=== PATIENT | male | born 2000 | race Two or more races ===

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

== ENCOUNTER 2021-05-04 07:40 | Emergency (ER) | payer OTHER, SELFPAY ==
--- NOTE | ~2021-05-04 | XR_ITS ---
EXAMINATION: XR CHEST CLINICAL INFORMATION: Shortness of breath COMPARISON: None TECHNIQUE: Frontal view of the chest was obtained. FINDINGS: There is no evidence of acute parenchymal disease, pneumothorax, or pleural effusion. Heart normal size. No evidence of pulmonary edema. Minor scarring at the left base XR/XR chest 1V IMPRESSION: No acute parenchymal disease.
[2021-05-04 07:43] VITALS: BP 129/48; PULSE 80; RESP 20; TEMP 36.6; O2SAT 96; BMI 24.4
[2021-05-04] MEDS: Albuterol/Iprat 2.5/0.5MG 3 ML AMPUL.NEB INHALE (08:50)
[2021-05-04 08:51] VITALS: PULSE 80; O2SAT 99
--- NOTE | 2021-05-04 08:54 | ED.SOB ---
HPI - SOB/Dyspnea General Chief Complaint: Dyspnea Stated Complaint: diff breathing Time Seen by Provider: 05/04/21 08:31 Source: patient Mode of arrival: ambulatory History of Present Illness HPI Narrative: 21-year-old male with a past medical history of asthma presenting to the ED complaining worsening SOB x a couple days and dry cough. Admits has needed to use albuterol inhaler more frequently without relief. Denies fever, chills, chest pain, LE edema, calf pain, sick contacts. Recently traveled to [place] MD elicited complaint: shortness of breath and cough Related Data Previous Rx's Medication Instructions Recorded albuterol sulfate 2.5 mg/0.5 mL 5 mg INHALATION Q4H PRN #30 ea 05/04/21 solution for nebulization Allergies Allergy/AdvReac Type Severity Reaction Status Date / Time amoxicillin [AMOXICILLIN] Allergy Unknown HIVES Unverified 02/19/20 17:01 Review of Systems Review of Systems: Constitutional: No Fever, No Chills, No Fatigue, No Malaise ENT/Mouth: No Ear Pain, No Nasal Congestion, No sore throat, No Rhinorrhea Eyes: No Eye Pain, No Swelling Cardiovascular: No Chest Pain, + SOB, No Dyspnea on Exertion, No Orthopnea, No Edema, No Palpitations Respiratory: + Cough, No Sputum, + Wheezing, No Dyspnea Gastrointestinal: No Nausea, No Vomiting, No Diarrhea, No Constipation, No Abdominal pain Genitourinary: No Dysuria, No Hematuria,No Flank Pain Musculoskeletal: No joint pain, No Myalgias, No Joint Swelling Skin: No Skin Lesions, No rash Neuro: No Weakness, No Numbness, No Dizziness, No Headache Yes all other systems are reviewed and are negative [facility] Past Medical History Attestation statement: The following information was validated with the patient. Medical History (Updated 05/04/21 @ 10:07 by LINA Mackay) Asthma Social History Social History Advance Directives: No Advance Directives Information Provided: Yes Physical Exam Vital Signs: Vital Signs: Last Vital Signs Temp 98 F 05/04/21 07:43 Pulse 80 05/04/21 08:51 Resp 20 05/04/21 07:43 BP 129/48 L 05/04/21 07:43 Pulse Ox 96 05/04/21 07:43 Body Mass Index 24.4 Const: General: cooperative, healthy appearing and no acute distress Orientation/consciousness: patient oriented x3 Limitations: no limitations HENMT: Head: Yes normal to inspection Ears: hearing grossly normal bilaterally General nose exam: Normal external nose present Face and sinus: Yes normal facial exam Eyes: General: appearance normal, both eyes and all related structures EOM: EOMs intact bilaterally Neck: Neck: Yes normal visual inspection and Yes no meningeal signs Resp: Other: Good air movement Effort & Inspection: normal respiratory effort Auscultation: wheezes (Mild) expiratory wheezes and throughout Cardio: Rate: regular rate Heart sounds: S1 normal heart sound present and S2 normal heart sound present GI: Inspection: Yes normal to inspection Palpation (GI): Soft to palpation, nontender, no guarding and not rigid Skin: Rashes: no rashes Wounds: no wounds Neuro: General: patient oriented x3 and no meningeal signs Gait exam (Neuro): Normal gait present Extrem: General: Yes normal to inspection, Yes no pedal edema and Yes no calf tenderness Course Course Course Narrative: XR chest 1V IMPRESSION: No acute parenchymal disease. ? > results discussed with patient, will discharge prior to COVID-19 results, will call with lab results only discussed worrisome signs and symptoms and strict return precautions and need to follow-up with PCP, patient verbalized understanding feel safe for discharge home MDM - SOB/Dyspnea MDM Narrative Medical decision making narrative: 21-year-old male with a past medical history of asthma presenting to the ED complaining worsening SOB x a couple days and dry cough. On exam vital signs stable, NAD/nontoxic, lungs with expiratory wheezes, good air movement, no pedal edema/calf tenderness. Concern for asthma exacerbation vs viral syndrome/COVID-19. Rule out pneumonia. Low concern for ACS/PE Plan: CXR, COVID-19 testing, [facility] Medical Records Attestation: I reviewed the patient's medical records. Lab Data Attestation: I reviewed the patient's lab results. Discharge Plan Discharge Clinical Impression: Asthma with exacerbation Qualifiers: Asthma severity: mild Asthma persistence: unspecified Qualified Code(s): J45.901 - Unspecified asthma with (acute) exacerbation Patient Disposition: Home, Self-Care Instructions: Asthma (ED) Additional Instructions: Your chest x-ray was unremarkable Your COVID-19, flu, and RSV test is pending at this time, I will call you with positive results only, you can also check the results of your study on the portal If her symptoms persist or worsen coming of constant worsening shortness of breath, develops fever, productive cough please return to the emergency department You need to be using her inhalers consistently at home in your nebulizer machine, refills for the neb machine were sent to the pharmacy Prescriptions: New albuterol sulfate 2.5 mg/0.5 mL solution for nebulization 5 mg inhalation Q4H PRN (Reason: shortness of breath or wheezing) Qty: 30 RF: 0 Referrals: Physician,Unknown J [Primary Care Provider] - 2 days
[2021-05-04] MEDS: Albuterol Sulfate 90 MCG 8 GM INHALER 1 PUFF INHALE (09:04)
[2021-05-04 11:04] LABS: Influenza A PCR NEGATIVE (Negative); Influenza B PCR NEGATIVE (Negative); Resp Syncy Virus RNA Qual PCR NEGATIVE (Negative); SARS COV2 PCR INHOUSE POSITIVE (Negative)
== END 2021-05-04 10:23 | disposition home or self-care (01) ==
PROVIDERS: Physician Assistant; Emergency Provider Emergency Medicine
DX: J45.901 Unspecified asthma with (acute) exacerbation (principal); R06.02 Shortness of breath; R50.9 Fever, unspecified; Z20.822 Contact with and (suspected) exposure to COVID-19; Z79.899 Other long term (current) drug therapy
CPT/HCPCS: 0241U; 36415; 71045; 94640; 94664; 99283; 99284

== ENCOUNTER 2022-11-22 09:44 | Emergency (ER) | payer OTHER, SELFPAY ==
--- NOTE | ~2022-11-22 | XR_ITS ---
EXAMINATION: XR ANKLE, LEFT CLINICAL INFORMATION: Ankle pain COMPARISON: None available. TECHNIQUE: AP, lateral, and mortise views of the left ankle. FINDINGS: The bones and soft tissues are normal. No fracture. Alignment is anatomic. Joint spaces are maintained. No joint effusion. XR/XR ankle LT min 3V IMPRESSION: Normal left ankle.
--- NOTE | ~2022-11-22 | XR_ITS ---
EXAMINATION: XR FOOT, LEFT CLINICAL INFORMATION: Left foot and ankle pain COMPARISON: None available. TECHNIQUE: AP, lateral, and oblique views of the left foot. FINDINGS: The bones and soft tissues are normal. No fracture. Alignment is anatomic. Joint spaces are maintained. XR/XR foot LT min 3V IMPRESSION: Normal left foot.
[2022-11-22 09:47] VITALS: BP 133/72; PULSE 63; RESP 18; TEMP 36.4; O2SAT 100; BMI 26.2
--- NOTE | 2022-11-22 10:06 | PC.NURSE ---
pt presents with pain in the left ankle that radiates towards the achilles tendon d/t twisting his ankle while playing basketball, no swelling noted, CMS intact, pedal/posterior tibial pulses intact.
--- NOTE | 2022-11-22 10:35 | ED.LOWEXIN ---
HPI - Extremity Injury (Lower) General Chief Complaint: Extremity Injury, Lower Stated Complaint: L Ankle Injury 3 Wks Ago Time Seen by Provider: 11/22/22 09:58 Source: patient and RN notes reviewed Mode of arrival: ambulatory Limitations: no limitations History of Present Illness HPI Narrative: This is a 22-year-old male presenting to the emergency department for evaluation of left ankle and left foot pain x3 weeks. Patient reports that while he was playing basketball he inverted his left ankle. He did not hear a pop or crack during this incident. He was able to bear weight on his left ankle and foot immediately following this injury. He reports that since his injury he has had intermittent swelling to his left ankle and has pain when he jumps up and down. He denies any pain with weight-bearing or with walking. He has tried taking ibuprofen as well as resting his ankle without any relief. No other complaints or concerns at this time. MD complaint: ankle injury and foot injury Type of Injury: inversion Place: street/outdoors Relieving factors: NSAID, cold therapy, immobilization and rest Exacerbating factors: other (Jumping) Associated symptoms: swelling Other symptoms: none Related Data Previous Rx's Medication Instructions Recorded albuterol sulfate 2.5 mg/0.5 mL 5 mg inhalation Q4H PRN shortness 05/04/21 solution for nebulization of breath or wheezing #30 ea ibuprofen 600 mg tablet 600 mg PO Q6H PRN pain #30 tabs 11/22/22 Allergies Allergy/AdvReac Type Severity Reaction Status Date / Time amoxicillin [AMOXICILLIN] Allergy Unknown HIVES Unverified 02/19/20 17:01 Review of Systems Review of Systems: Constitutional: No Weight loss, No Fever, No Chills ENT/Mouth: No Ear Pain, No Nasal Congestion, No Sinus Pain, No Hoarseness, No sore throat, No Rhinorrhea, No Swallowing Difficulty Cardiovascular: No Chest Pain, No SOB Respiratory: No Cough, No Sputum, No Wheezing Gastrointestinal: No Nausea, No Vomiting, No Diarrhea, No Constipation, No Abdominal pain Genitourinary: No Dysuria, No Urinary Frequency, No Hematuria, No Urinary Incontinence/retention, No Urgency, No Flank Pain Musculoskeletal: No joint pain, No Myalgias, No Joint Swelling Skin: No Skin Lesions, No rash Neuro: No Weakness, No Numbness, No Paresthesias [facility] Past Medical History Medical History Asthma Social History Social History Advance Directives: No Advance Directives Information Provided: Yes Physical Exam Vital Signs: Vital Signs: Last Vital Signs Temp 97.5 F 11/22/22 09:47 Pulse 63 11/22/22 09:47 Resp 18 11/22/22 09:47 BP 133/72 11/22/22 09:47 Pulse Ox 100 11/22/22 09:47 O2 Del Method Room Air 11/22/22 09:47 BMI result Body Mass Index 26.2 Const: Other: General: Awake, alert, and oriented X3. No acute distress. HEENT: Normal inspection CVS: Normal heart rate and rhythm. Pulses normal. Respiratory: No respiratory distress Skin: Warm, dry, no rashes noted to exposed skin. Normal skin color. Normal skin turgor. Extremities: Left ankle with mild edema noted over the lateral malleolus. Mild tenderness palpation over the left lateral malleolus and just inferior to the left lateral malleolus. No left medial malleoli tenderness. Able to dorsi and plantar flex, no pain with inversion or eversion. Patient has mild tenderness to palpation to the 1st metatarsal. No tenderness to palpation along the metatarsal. DP pulses 2+, distal sensation/circulation. Mild tenderness to palpation along the Achilles tendon without any swelling or appreciable abnormalities. Negative díaz test. No calcaneal tenderness with palpation. Neuro: Oriented X 3. No motor deficit. No sensory deficit. Course Reevaluation(s) Reevaluation #1: Left foot and left ankle x-rays reviewed with no bony abnormality seen. These results discussed with patient, placed Dada wrap on left ankle. Given orthopedic referral if symptoms persist. Patient understands agrees with plan. Patient stable for discharge. Time: 12:18 Medical Decision Making Medical Decision Making MDM Narrative: 21-year-old male presenting to the emergency department for evaluation of left ankle pain and left foot pain the last 3 weeks. Patient reports that he inverted his left ankle and foot while playing basketball. He was able to bear weight after the incident. Patient has had pain with jumping. No pain ambulation. Vital signs stable. Negative Díaz test, Achilles tendon is intact. Plan: Left ankle x-ray, left foot x-ray Differential Diagnosis Differential Diagnoses: The differential diagnosis associated with the presentation includes Left ankle fracture, strain, sprain, contusion, Achilles tendon rupture Discharge Plan Discharge Clinical Impression: Ankle sprain and strain Patient Disposition: Home, Self-Care Instructions: Ankle Sprain (ED) Additional Instructions: Your foot and ankle x-ray showed no broken bones. Please rest, use Dada wrap or ankle brace for support. Avoid jumping until your able to tolerate this. If your symptoms persist please follow-up with orthopedics for further treatment and assessment. Take ibuprofen as prescribed as needed for symptoms. If any new or worsening symptoms occur please return for re-evaluation. Prescriptions: New ibuprofen 600 mg tablet 600 mg PO Q6H PRN (Reason: pain) Qty: 30 0RF No Action albuterol sulfate 2.5 mg/0.5 mL solution for nebulization 5 mg inhalation Q4H PRN (Reason: shortness of breath or wheezing) Qty: 30 0RF Referrals: [facility] [place] Orth[facility] Surgeons [Provider Group]
== END 2022-11-22 12:48 | disposition home or self-care (01) ==
PROVIDERS: Emergency Provider Emergency Medicine; PCP Internal Medicine
DX: S93.402A Sprain of unspecified ligament of left ankle, initial encounter (principal); S96.912A Strain of unspecified muscle and tendon at ankle and foot level, left foot, initial encounter; X50.1XXA Overexertion from prolonged static or awkward postures, initial encounter; Y93.67 Activity, basketball; Y92.310 Basketball court as the place of occurrence of the external cause; Y99.9 Unspecified external cause status
CPT/HCPCS: 73610; 73630; 99283

== ENCOUNTER 2024-01-26 20:34 | Emergency (ER) | payer OTHER, SELFPAY ==
--- NOTE | ~2024-01-26 | XR_ITS ---
EXAMINATION: XR KNEE, RIGHT CLINICAL INFORMATION: Injury. Pain in the knee. COMPARISON: None available. TECHNIQUE: AP, lateral, and both oblique views of the right knee. FINDINGS: There is focal impaction of the lateral femoral condyle and the region of the terminal sulcus, concerning for a deep sulcus sign. Small joint effusion. Alignment is anatomic. Joint spaces are maintained. No abnormal soft tissue calcification. XR/XR knee RT 3V IMPRESSION: 1. Focal impaction of the lateral femoral condyle in the region of the terminal sulcus, concerning for a deep sulcus sign. This can be seen in the setting of a pivot shift injury as with an ACL tear. Consider correlation with MRI of the knee for further assessment. 2. Small joint effusion. Electronically signed by: Lowell Quinones MD 01/26/2024 10:25 PM EDT
--- NOTE | 2024-01-26 20:37 | ED_ITS ---
HPI - General Adult General Chief complaint: Extremity Injury, Lower Stated complaint: playing basketball/rt leg Time Seen by Provider: 01/26/24 20:48 Source: patient Mode of arrival: ambulatory Limitations: no limitations History of Present Illness ED Provider: Erin Zamora PA-C HPI narrative: Patient is a 24 year old assigned male at with no reported medical history presenting to the emergency department today with right knee pain. Patient states that he was playing basketball when he jumped and landed incorrectly and fell while his right lower leg was planted. Patient states that he felt pain in his right knee immediately and it has continued to get worse. Patient denies any head injury, loss of consciousness, dizziness, lightheadedness, abdominal pain, nausea, vomiting, fever, chills, blurry vision, double vision, loss of vision, chest pain, difficulty breathing, shortness of breath, back pain, night sweats, pain with urination, increased urinary frequency, increased urinary urgency, blood in his urine or stool, syncope or a near syncopal episode, bowel incontinence, bladder incontinence, or any other complaints at this time. Onset (ago): minute(s) Location: right and lower extremity Relieving factors: immobilization Exacerbating factors: movement Associated symptoms: denies other symptoms Treatments prior to arrival: none Related Data Previous Rx's ?Medication ?Instructions ?Recorded albuterol sulfate 2.5 mg/0.5 mL 5 mg inhalation Q4H PRN shortness 05/04/21 solution for nebulization of breath or wheezing #30 ea ibuprofen 600 mg tablet 600 mg PO Q6H PRN pain #30 tabs 11/22/22 Allergies Allergy/AdvReac Type Severity Reaction Status Date / Time amoxicillin [AMOXICILLIN] Allergy Unknown HIVES Unverified 01/26/24 20:40 Review of Systems Constitutional: Constitutional: Reports no additional constitutional co mplaints, Denies chills, Denies fever(s) and Denies night sweats Eyes: Eyes: Reports no additional eye complaints, Denies blurry vision, Denies change in vision, Denies diplopia, Denies eye discharge, Denies loss of vision and Denies eye pain ENT: Denies dizziness Cardiovascular: Cardiovascular: Reports no additional cardiovascular complaints, Denies chest pain, Denies lightheadedness, Denies Loss of Consciousness and Denies dyspnea Respiratory: Respiratory: Reports no additional respiratory complaints and Denies dyspnea Gastrointestinal: Gastrointestinal: Reports no additional gastrointestinal complaints, Denies abdominal pain, Denies melena, Denies hematochezia, Denies change in bowel habits and Denies change in stool character Genitourinary: Genitourinary: Reports no additional male genitourinary complaints, Denies hematuria, Denies oliguria, Denies difficulty urinating, Denies dysuria, Denies urinary frequency, Denies urinary hesitancy, Denies urinary incontinence and Denies urinary urgency Musculoskeletal: Musculoskeletal: Reports no additional musculoskeletal complaints, Denies numbness and Denies tingling Comments: right knee pain Neurologic: Denies dizziness, Denies loss of vision, Denies numbness and Denies tingling Psychiatric: Psychiatric: Reports no additional psychiatric complaints Endocrine: Endocrine: Reports no additional endocrine complaints Hematologic/Lymphatic: Hematologic/Lymphatic: Reports no additional hematologic/lymphatic complaints Allergic/Immunologic: Allergic/Immunologic: Reports no additional allergic/immunologic complaints PMFSH Past Medical History Attestation statement: The following information was validated with the patient. Source: old records reviewed and nursing notes reviewed Medical History Asthma Social History Social History Alcohol intake: unknown Smoked in Last 30 Days: No Advance Directives: No Advance Directives Information Provided: No Do you have a plan to hurt others: No Plan Physical Exam ED Vital Signs: Vital Signs - 24 hr 01/26/24 20:38 01/26/24 22:33 Temperature 98.9 F 98.9 F Pulse Rate 85 85 Respiratory Rate 18 18 Blood Pressure 122/61 122/61 Pulse Oximetry 97 97 Oxygen Delivery Method Room Air Room Air BMI result Body Mass Index 27.7 Const General: cooperative, no acute distress, alert and awake Nutritional Appearance: well nourished Orientation/consciousness: patient oriented x3 Limitations: no limitations HENMT Head: Yes normal to inspection and Yes atraumatic Ears: hearing grossly normal bilaterally and external ears normal General nose exam: Normal external nose present, no nasal discharge noted and no epistaxis Face and sinus: Yes normal facial exam, No abrasion and No laceration Mouth: Normal oral and palatal mucosa present, no drooling and no muffled voice Eyes General: appearance normal, both eyes and all related structures Periorbital: periorbital findings normal Eyelids: Yes eyelids normal Conjunctivae: conjunctivae normal Pupils: Equal, round and reactive pupils present EOM: EOMs intact bilaterally Neck Neck: Yes normal visual inspection, Yes full ROM and Yes no lymphadenopathy Chest Chest palpation & inspection: normal inspection of the chest Resp Effort & Inspection: normal respiratory effort and able to speak in complete sentences GI Inspection: Yes normal to inspection Neuro General: patient oriented x3 and moves all extremities Cranial nerves: Yes Equal, round and reactive pupils present Cognition (Neuro): normal cognition Extrem Other: pain with all right knee ROM Significant pain with anterior drawer test General: Yes normal to inspection and Yes capillary refill normal Psych Appearance: grossly normal Mental Status: mental status grossly normal Affect: normal affect Attitude: cooperative Thought process: Normal thought process present Thought content: Normal thought content present Insight: Good insight present (Psych) Course Course Course Narrative: This is a rapid medical exam. Deferred additional HPI, ROS, PE to primary provider. 24 yo male with history of asthma here with right knee pain after a twisting injury with a fall. +instability. Will obtain x-rays [facility] Neha [employer] Procedures Orthopedic Splinting/Casting Injury #1: Side: right Lower Extremity Injury Location: knee Lower Extremity Immobilizer: knee immobilizer Other Orthopedic Equipment: crutches Medical Decision Making Medical Decision Making MDM Narrative: Patient is a 24 year old assigned male at with no reported medical history presenting to the emergency department today with right knee pain. Patient's physical exam was as noted in the physical exam portion of this note and most consistent with an ACL injury. Patient's right knee x-ray showed a focal impaction of the lateral femoral condyle in the region of the terminal sulcus which is consistent with an ACL injury. I explained my physical exam findings as well as all test results to the patient. I answered all questions asked by the patient. Patient's right knee was placed in an immobilizer, without incident. Patient's PMS was intact prior to and after immobilizer placement. Patient was given crutches with crutch instructions. I stressed the importance of the patient taking his medication as directed (either prescribed or as the over the counter packaging recommends). I stressed the importance of the patient following up with his primary care provider and an orthopedic provider. I stressed the importance of the patient returning to the emergency department immediately if his symptoms were to worsen or if he were to develop any dizziness, shortness of breath, difficulty breathing, chest pain, blurry vision, loss of vision, nausea, vomiting, abdominal pain, fever, chills, back pain, or any other complaints. Patient verbalized agreement and understanding with this treatment plan and discharge. Differential Diagnosis Differential Diagnoses: The differential diagnosis associated with the p resentation includes Right ACL injury Right knee sprain Right knee strain Right knee pain Admission/Observation Consideration of admission/observation: Escalation of care including admission/observation considered Patient would have been admitted to the hospital had his work up had any findings where hospital admission was appropriate and his clinical presentation warranted hospital admission. Independent Interpretation I performed an independent interpretation of an: Plain X-Ray Interpretation: My interpretation is in agreement with the radiologist's impression of this imaging study. EXAMINATION: XR KNEE, RIGHT CLINICAL INFORMATION: Injury. Pain in the knee. COMPARISON: None available. TECHNIQUE: AP, lateral, and both oblique views of the right knee. FINDINGS: There is focal impaction of the lateral femoral condyle and the region of the terminal sulcus, concerning for a deep sulcus sign. Small joint effusion. Alignment is anatomic. Joint spaces are maintained. No abnormal soft tissue calcification. XR/XR knee RT 3V IMPRESSION: 1. Focal impaction of the lateral femoral condyle in the region of the terminal sulcus, concerning for a deep sulcus sign. This can be seen in the setting of a pivot shift injury as with an ACL tear. Consider correlation with MRI of the knee for further assessment. 2. Small joint effusion. Electronically signed by: Lowell Quinones MD 01/26/2024 10:25 PM EDT RP Dictated By: Lowell Quinones MD Signed By: Electronically signed by Lowell Quinones MD 01/26/24 3318 Radiology Impression Discussion of test interpretation with radiology: I have reviewed the radiologist's reading. Discharge Plan Discharge Clinical Impression: Knee sprain Patient Disposition: Home, Self-Care Instructions: Knee Sprain (DC) Additional Instructions: Follow up with your primary care provider and an orthopedic provider. Return to the emergency department immediately if your symptoms worsen or if you develop any dizziness, shortness of breath, difficulty breathing, chest pain, blurry vision, loss of vision, nausea, vomiting, abdominal pain, fever, chills, back pain, or any other complaints. Prescriptions: No Action albuterol sulfate 2.5 mg/0.5 mL solution for nebulization 5 mg inhalation Q4H PRN (Reason: shortness of breath or wheezing) Qty: 30 0RF ibuprofen 600 mg tablet 600 mg PO Q6H PRN (Reason: pain) Qty: 30 0RF Referrals: [facility] [place] Orthopedic Surgeons [Provider Group] (Call to establish and follow up with an orthopedic provider. ) Alex Dunn MD [Primary Care Provider] - Stand Alone Forms: Work/School Release Interventions: ED Discharge Assessment Last Done: 01/26/24 22:33 Discharge Date/Time: 01/26/24 22:34 Print Language: Yakut
[2024-01-26 20:38] VITALS: BP 122/61; PULSE 85; RESP 18; TEMP 37.2; O2SAT 97; BMI 27.7
[2024-01-26 22:33] VITALS: BP 122/61; PULSE 85; RESP 18; TEMP 37.2; O2SAT 97
== END 2024-01-26 22:34 | disposition home or self-care (01) ==
PROVIDERS: Emergency Provider Emergency Medicine Emergency Medical Services; PCP Internal Medicine
DX: S83.91XA Sprain of unspecified site of right knee, initial encounter (principal); X50.9XXA Other and unspecified overexertion or strenuous movements or postures, initial encounter; Y93.67 Activity, basketball; Y92.310 Basketball court as the place of occurrence of the external cause; Y99.9 Unspecified external cause status
CPT/HCPCS: 73562; 99283; 99284

== ENCOUNTER 2024-01-29 12:41 | Outpatient (REF) | payer OTHER, SELFPAY ==
--- NOTE | ~2024-01-29 | XR_ITS ---
EXAMINATION: XR KNEE, RIGHT CLINICAL INFORMATION: Pain in the right knee COMPARISON: X-rays of the right knee January 2024. TECHNIQUE: Single patellar view of the right knee FINDINGS: The patellofemoral joint is normal. No joint space narrowing with degenerative changes surrounding soft tissue is normal. XR/XR knee RT 1V IMPRESSION: Normal patellar view. No arthrosis Electronically signed by: Colin Berrios MD 02/19/2024 06:59 AM EDT
== END 2024-01-29 12:42 | disposition home or self-care (01) ==
LOC: HO.XRAY 12:41
PROVIDERS: PCP Internal Medicine; Visit Provider Physician Assistant
DX: M25.561 Pain in right knee (principal); M23.91 Unspecified internal derangement of right knee
CPT/HCPCS: 73560; 99202

== ENCOUNTER 2024-01-29 13:12 | Outpatient (AMB) | payer OTHER, SELFPAY ==
--- NOTE | 2024-01-29 13:24 | MHC.OFFVIS ---
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 Patient reports he went up for a lay and upon coming down he landed wrong twisting his knee. He presented to [facility] ER where xrays were taken and placed in a knee immobilizer. Currently he has had improvement in his pain since injury as well as his ROM. He is nervous to apply any pressure. 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 He states he was playing basketball when he went up for a lay-up and came down landing on the knee and twisting the leg back and he fell. He was unable to immediately get up and walk . He did notice swelling a few days after. He was seen in the ED, xryas obtained and he was given a knee immob with crutches. He has not been applying weight to the leg as he feels it will give out. [facility] Medical History (Updated 01/29/24 @ 13:47 by Thania Ocampo PA-C) Asthma Surgical History (Updated 01/29/24 @ 13:28 by JARVIS Beauchamp) History of nasal surgery Social History (Updated 01/29/24 @ 13:29 by JARVIS Beauchamp) Alcohol intake: unknown Patient Tobacco Use Status: Never used Tobacco Current occupational status: employed Current occupation: youth counselor Review of Systems Const All systems reviewed & are unremarkable except as noted in HPI and below Physical Exam Vital Signs: BMI result Body Mass Index 27.7 Const General: cooperative and no acute distress Orientation/consciousness: patient oriented x3 Resp Effort & Inspection: normal respiratory effort and able to speak in complete sentences Cardio Peripheral pulses: Peripheral pulses 2+ throughout Neuro General: patient oriented x3 Extrem Other: Right knee skin intact, no erythema or joint effusion. Mild Tenderness along the medial joint line. ROM full with crepitus. Positive steinmans. No ligamentous laxity. NVI. Results Reviewed Results Reviewed: Xrays were obtained in the office today and personally reviewed by me of the right knee negative for acute fracture or dislocations Assessment & Plan Assessment & Plan (1) Internal derangement of right knee: Code(s): M23.91 - Unspecified internal derangement of right knee Category: Medical Plan: Given the extent of the injury along with clinical exam findings of swelling, joint tenderness and feeling of the knee giving out when ambulating an MRI of the right knee has been ordered. He was given a hinged knee brace in the office today and I did review some exercises with him to work on his range of motion and activity in the quad muscle. Once the scan is complete I will reach out to him to determine the next step in his treatment. Orders: Orders XR knee RT 1V Today M25.561 - Pain in right knee MR knee RT wo con Today M23.91 - Unspecified internal derangement of right knee Coding Level of Care Code New Pt Level 3 (81635) Diagnoses Internal derangement of right knee M23.91
[2024-01-29 13:31] VITALS: BMI 27.7
== END 2024-01-29 14:24 | disposition home or self-care (01) ==
LOC: HO.HOS 13:12
PROVIDERS: PCP Internal Medicine; Visit Provider Physician Assistant
DX: M23.91 Unspecified internal derangement of right knee (principal)
CPT/HCPCS: 99203

== ENCOUNTER 2024-02-12 19:39 | Outpatient (REF) | payer OTHER, SELFPAY ==
--- NOTE | ~2024-02-12 | MR_ITS ---
EXAMINATION: MR KNEE WITHOUT CONTRAST, RIGHT CLINICAL INFORMATION: Internal derangement of the right knee. COMPARISON: X-ray of the right knee January 2024. TECHNIQUE: MRI of the knee without contrast was performed using routine sequences on a high-field scanner. FINDINGS: MENISCI: Medial Meniscus: There is a focal area of increased signal measuring 2 mm at the junction of the middle and peripheral one-third portion of the posterior horn indicative of meniscal tear. Lateral Meniscus: Intact. LIGAMENTS: Cruciate: ACL: There is a tear of the anterior cruciate ligament most likely complete and acute or subacute. PCL: Intact. Collateral: Medial collateral ligament: There is a transverse tear to the deep fibers of the medial collateral ligament located 1 cm proximal to the femoral attachment. Additional heterogeneity of the deep fibers extend to the joint line indicative of additional partial tearing. Lateral ligaments intact. EXTENSOR MECHANISM: Intact. ARTICULAR CARTILAGE/BONE: Patellofemoral Compartment: Normal. Medial Compartment: The subchondral bone marrow edema along the peripheral posterior margin of the medial plateau and peripheral medial margin of the weightbearing medial femoral condyle indicative of areas of bone contusion. Overlying articular cartilage intact. Lateral Compartment: Slight depression of the sulcus terminalis with underlying prominent surrounding marrow edema. Findings indicative of an impaction fracture. No additional visible area of articular abnormality. Bone marrow edema in the subchondral region of the posterior lateral plateau compatible with bone contusion. Overlying articular cartilage appears intact. JOINT FLUID AND BURSAE: There is a moderate to joint effusion. Small Khanna cyst. MR/MR knee RT wo con IMPRESSION: 1. Tear of the posterior horn of the medial meniscus. 2. Tear of the anterior cruciate ligament most likely complete. Bone contusion/injury pattern consistent with acute ACL tear. 3. Partial tear of the medial collateral ligament. 4. Joint effusion and Khanna's cyst. Electronically signed by: Colin Berrios MD 02/14/2024 12:18 PM EDT
== END 2024-02-12 19:40 | disposition home or self-care (01) ==
LOC: HO.MRI 19:39
PROVIDERS: PCP Internal Medicine; Visit Provider Physician Assistant
DX: M23.91 Unspecified internal derangement of right knee (principal)
CPT/HCPCS: 73721

== ENCOUNTER 2024-02-16 08:24 | Emergency (ER) | payer OTHER, SELFPAY ==
[2024-02-16 08:29] VITALS: BP 99/63; PULSE 79; RESP 18; TEMP 36.4; O2SAT 99; BMI 27.2
[2024-02-16 08:44] LABS: MANUAL DIFF FLAG NO
[2024-02-16 08:46] LABS: Basophils Percent Auto 0.2 % (0-2); Eosinophils Absolute Auto 0.2 X10*3/uL (0.0-0.4); Eosinophils Percent Auto 2.1 % (0-4); Hematocrit 40.4 % (42.0-52.0); Hemoglobin 14.4 g/dl (14.0-18.0); Imm Gran Abs Auto 0.03 X10*3/uL (0.00-0.03); Imm Gran Pct Auto 0.3 % (0.0-0.4); Lymphocytes Absolute Auto 2.8 X10*3/uL (1.2-4.9); Lymphocytes Percent Auto 29.1 % (20-40); Mean Corpuscular HGB Conc 35.6 g/dl (31.0-36.0); Mean Corpuscular Hemoglobin 29.9 pg (27.0-33.0); Mean Corpuscular Volume 83.8 fL (80.0-98.0); Monocytes Absolute Auto 0.8 X10*3/uL (0.1-1.2); Monocytes Percent Auto 8.6 % (2-11); Neutrophils Absolute Auto 5.6 x10*3/uL (2.0-8.3); Neutrophils Percent Auto 59.7 % (45-73); Platelet Count 235 X10*3/uL (160-400); Red Blood Count 4.82 X10*6/uL (4.60-5.80); Red Cell Distribution Width 11.8 % (11.0-16.0); White Blood Count 9.4 X10*3/uL (4.8-10.8)
[2024-02-16 08:49] VITALS: BP 126/66; PULSE 66; RESP 16; TEMP 36.6; O2SAT 96
[2024-02-16 09:02] LABS: Alanine Aminotransferase 21 U/L (0-40); Albumin Level 4.4 g/dL (3.5-5.0); Alkaline Phosphatase 82 U/L (39-117); Anion Gap 14 (12-20); Aspartate Amino Transferase 16 U/L (5-37); Bilirubin Total 0.4 mg/dL (0.0-1.0); Blood Urea Nitrogen 23 mg/dL (9-16); Calcium 9.7 mg/dL (8.4-10.2); Carbon Dioxide 23 mmol/L (22-29); Chloride 107 mmol/L (96-108); Creatinine Clr Calc Pharmacy 145.8; Estimated Glomerular Filt Rate > 60; Glucose Random 113 mg/dL (60-115); Potassium 3.9 mmol/L (3.3-5.1); Sodium 140 mmol/L (135-145)
--- NOTE | 2024-02-16 09:02 | ED.GENADULT ---
HPI - General Adult General Chief complaint: GI Bleed Stated complaint: abd pain coffee ground stools Time Seen by Provider: 02/16/24 09:01 Source: patient Mode of arrival: ambulatory Limitations: no limitations History of Present Illness ED Provider: Erin Zamora PA-C HPI narrative: Patient is a 24 year old assigned male at with a history of recent right ACL injury presenting to the emergency department today with dark stools. Patient states that he recently injured his right ACL and has been taking ibuprofen 400mg BID for pain. Patient states that last night he had a bout of dark stools and then had another bout again this morning. Patient denies any dizziness, lightheadedness, abdominal pain, nausea, vomiting, fever, chills, blurry vision, double vision, loss of vision, chest pain, difficulty breathing, shortness of breath, back pain, night sweats, pain with urination, increased urinary frequency, increased urinary urgency, blood in his urine, syncope or a near syncopal episode, recent trauma or falls, bowel incontinence, bladder incontinence, or any other complaints at this time. Relieving factors: none Exacerbating factors: none Associated symptoms: denies other symptoms Related Data Previous Rx's ?Medication ?Instructions ?Recorded albuterol sulfate 2.5 mg/0.5 mL 5 mg inhalation Q4H PRN shortness 05/04/21 solution for nebulization of breath or wheezing #30 ea ibuprofen 600 mg tablet 600 mg PO Q6H PRN pain #30 tabs 11/22/22 pantoprazole 20 mg tablet,delayed 20 mg PO BID 14 days #28 tabs 02/16/24 release (Protonix) Allergies Allergy/AdvReac Type Severity Reaction Status Date / Time amoxicillin [AMOXICILLIN] Allergy Unknown HIVES Verified 02/16/24 08:32 Review of Systems Constitutional: Constitutional: Reports no additional constitutional complaints, Denies chills, Denies fever(s) and Denies night sweats Eyes: Eyes: Reports no additional eye complaints, Denies blurry vision, Denies change in vision, Denies diplopia, Denies eye discharge, Denies loss of vision and Denies eye pain ENT: Denies dizziness Cardiovascular: Cardiovascular: Reports no additional cardiovascular complaints, Denies chest pain, Denies lightheadedness, Denies Loss of Consciousness and Denies dyspnea Respiratory: Respiratory: Reports no additional respiratory complaints and Denies dyspnea Gastrointestinal: Gastrointestinal: Reports no additional gastrointestinal complaints, Denies abdominal pain, Reports melena, Denies hematochezia, Denies change in bowel habits and Reports change in stool character Genitourinary: Genitourinary: Reports no additional male genitourinary complaints, Denies hematuria, Denies oliguria, Denies difficulty urinating, Denies dysuria, Denies urinary frequency, Denies urinary hesitancy, Denies urinary incontinence and Denies urinary urgency Musculoskeletal: Musculoskeletal: Reports no additional musculoskeletal complaints, Denies numbness and Denies tingling Neurologic: Denies dizziness, Denies loss of vision, Denies numbness and Denies tingling Psychiatric: Psychiatric: Reports no additional psychiatric complaints Endocrine: Endocrine: Reports no additional endocrine complaints Hematologic/Lymphatic: Hematologic/Lymphatic: Reports no additional hematologic/lymphatic complaints Allergic/Immunologic: Allergic/Immunologic: Reports no additional allergic/immunologic complaints PMFSH Past Medical History Attestation statement: The following information was validated with the patient. Source: old records reviewed and nursing notes reviewed Medical History Asthma Surgical History History of nasal surgery Social History Social History Alcohol intake: unknown Patient Tobacco Use Status: Never used Tobacco Smoked in Last 30 Days: No Use of substances other than those prescribed or required for medical reasons: No Advance Directives: No Advance Directives Information Provided: Yes Do you have a plan to hurt others: No Plan Current occupational status: employed Current occupation: youth counselor Physical Exam ED Vital Signs: Vital Signs - 24 hr 02/16/24 08:29 02/16/24 08:49 02/16/24 10:23 Temperature 97.6 F 97.9 F 97.9 F Pulse Rate 79 66 57 Respiratory Rate 18 16 16 Blood Pressure 99/63 126/66 114/61 Pulse Oximetry 99 96 98 Oxygen Delivery Method Room Air Room Air Room Air BMI result Body Mass Index 27.2 Const General: cooperative, no acute distress, alert and awake Nutritional Appearance: well nourished Orientation/consciousness: patient oriented x3 Limitations: no limitations HENMT Head: Yes normal to inspection and Yes atraumatic Ears: hearing grossly normal bilaterally and external ears normal General nose exam: Normal external nose present, no nasal discharge noted and no epistaxis Face and sinus: Yes normal facial exam, No abrasion and No laceration Mouth: Normal oral and palatal mucosa present, no drooling and no muffled voice Eyes General: appearance normal, both eyes and all related structures Periorbital: periorbital findings normal Eyelids: Yes eyelids normal Conjunctivae: conjunctivae normal Pupils: Equal, round and reactive pupils present EOM: EOMs intact bilaterally Neck Neck: Yes normal visual inspection, Yes full ROM and Yes no lymphadenopathy Chest Chest palpation & inspection: normal inspection of the chest Resp Effort & Inspection: normal respiratory effort and able to speak in complete sentences GI Inspection: Yes normal to inspection Palpation (GI): Soft to palpation, not firm, nontender, no guarding and not rigid Neuro General: patient oriented x3 and moves all extremities Cranial nerves: Yes Equal, round and reactive pupils present Cognition (Neuro): normal cognition Extrem General: Yes normal to inspection, Yes full ROM and Yes capillary refill normal Psych Appearance: grossly normal Mental Status: mental status grossly normal Affect: normal affect Attitude: cooperative Thought process: Normal thought process present Thought content: Normal thought content present Insight: Good insight present (Psych) Medications Administered Discontinued Medications Generic Name Dose Route Start Last Admin Trade Name Freq PRN Reason Stop Dose Admin Sodium Chloride 1,000 mls @ 999 mls/hr 02/16/24 09:15 02/16/24 10:17 Ns IV 02/16/24 10:15 Infused .Q1H1M RENETTA Infusion Pantoprazole Sodium 40 mg 02/16/24 09:03 02/16/24 09:15 Pantoprazole Sodium 40 Mg/10 Ml Vial IVPUSH 02/16/24 09:04 40 mg ONCE ONE Administration Medical Decision Making Medical Decision Making [facility] Narrative: Patient is a 24 year old assigned male at with a history of recent right ACL injury presenting to the emergency department today with dark stools. Patient's physical exam was unremarkable. Patient's blood work was unremarkable. Patient provided cell phone pictures of the stool which was consistent with melena. I spoke to Dr. Griffin, the GI specialist operations trainer, who agreed with plan of discharging the patient home on BID PPI x14 days, having him follow up in the office, decrease NSAID use, and have the patient adhere to strict return precautions. I explained my physical exam findings as well as all test results to the patient. I answered all questions asked by the patient. I stressed the importance of the patient taking his medication as directed (either prescribed or as the over the counter packaging recommends). I stressed the importance of the patient following up with his primary care provider and a GI specialist. I stressed the importance of the patient returning to the emergency department immediately if his symptoms were to worsen or if he were to develop any dizziness, shortness of breath, difficulty breathing, chest pain, blurry vision, loss of vision, nausea, vomiting, abdominal pain, fever, chills, back pain, or any other complaints. Patient verbalized agreement and understanding with this treatment plan and discharge. Differential Diagnosis Differential Diagnoses: The differential diagnosis associated with the presentation includes Melena GI bleeding Peptic ulcer Admission/Observation Consideration of admission/observation: Escalation of care including admission/observation considered Patient would have been admitted to the hospital had his work up had any findings where hospital admission was appropriate and his clinical presentation warranted hospital admission. Consult Healthcare Provider Management of the patient was discussed with: Bridge Teacher (spoke to the GI specialist as noted in the MDM rationale portion of this note.) Lab Data [facility] Lab Attestation statement: I reviewed the patient's lab results. My interpretation of these results are in the MDM Rationale portion of this note. 02/16/24 08:38 02/16/24 08:38 Labs: Lab Results 02/16/24 Range/Units 08:38 WBC 9.4 (4.8-10.8) X10*3/uL RBC 4.82 (4.60-5.80) X10*6/uL Hgb 14.4 (14.0-18.0) g/dl Hct 40.4 L (42.0-52.0) % MCV 83.8 (80.0-98.0) fL MCH 29.9 (27.0-33.0) pg MCHC 35.6 (31.0-36.0) g/dl RDW 11.8 (11.0-16.0) % Plt Count 235 (160-400) X10*3/uL MPV 11.0 (9.4-12.4) fL Immature Gran % (Auto) 0.3 (0.0-0.4) % Neut % (Auto) 59.7 (45-73) % Lymph % (Auto) 29.1 (20-40) % [place] % (Auto) 8.6 (2-11) % Eos % (Auto) 2.1 (0-4) % Baso % (Auto) 0.2 (0-2) % Lymph # (Auto) 2.8 (1.2-4.9) X10*3/uL [place] # (Auto) 0.8 (0.1-1.2) X10*3/uL Eos # (Auto) 0.2 (0.0-0.4) X10*3/uL Baso # (Auto) 0.0 (0.0-0.2) X10*3/uL Abs Immat Gran (auto) 0.03 (0.00-0.03) X10*3/uL Absolute Neuts (auto) 5.6 (2.0-8.3) x10*3/uL Absolute Nucleated RBC 0.000 (0.0-0.012) X10*3/uL Nucleated RBC % (auto) 0.0 (0.0-0.2) /100WBC Sodium 140 (135-145) mmol/L Potassium 3.9 (3.3-5.1) mmol/L Chloride 107 (96-108) mmol/L Carbon Dioxide 23 (22-29) mmol/L Anion Gap 14 (12-20) BUN 23 H (9-16) mg/dL Creatinine 0.89 (0.5-1.4) mg/dL Estim Creat Clear Calc 145.8 Estimated GFR > 60 Random Glucose 113 (60-115) mg/dL Calcium 9.7 (8.4-10.2) mg/dL Total Bilirubin 0.4 (0.0-1.0) mg/dL AST 16 (5-37) U/L ALT 21 (0-40) U/L Alkaline Phosphatase 82 (39-117) U/L Total Protein 7.0 (6.5-8.0) g/dL Albumin 4.4 (3.5-5.0) g/dL Critical Care Time Critical Care Time Critical Care Time: Yes Total Critical Care Time: 34 Attestation: I spent 34 minutes of Critical Care Time with this patient. This does not include time spent on separately reported billable procedures. Discharge Plan Discharge Clinical Impression: GI bleed Patient Disposition: Home, Self-Care Instructions: Gastrointestinal Bleeding (ED) Additional Instructions: Your work up today including your blood work was reassuring. I consulted the GI Specialist from the department who agrees with this management. Refrain from NSAID use (ibuprofen, motrin, aleve, naproxin, Excedrin, etc.). Follow up with a GI speicalist and your primary care provider. Return to the emergency department immediately if your symptoms worsen or if you develop any dizziness, shortness of breath, difficulty breathing, chest pain, blurry vision, loss of vision, nausea, vomiting, abdominal pain, fever, chills, back pain, or any other complaints. Prescriptions: New pantoprazole [Protonix] 20 mg tablet,delayed release (DR/EC) 20 mg PO BID 14 Days Qty: 28 0RF No Action albuterol sulfate 2.5 mg/0.5 mL solution for nebulization 5 mg inhalation Q4H PRN (Reason: shortness of breath or wheezing) Qty: 30 0RF ibuprofen 600 mg tablet 600 mg PO Q6H PRN (Reason: pain) Qty: 30 0RF Referrals: [facility] [Provider Group] (Call to establish and follow up with a GI specialist. ) Alex Dunn MD [Primary Care Provider] - Stand Alone Forms: Work/School Release Print Language: Greek
[2024-02-16] MEDS: 0.9 % Sodium Chloride 1,000 ML 999 ML IV (09:14)
[2024-02-16] MEDS: Pantoprazole Sodium 40 MG/10 ML VIAL IVPUSH (09:15)
--- NOTE | 2024-02-16 09:24 | PC.NURSE ---
20gIV placed in the right AC - medication/IVF administered per provider order. plan of care ongoing.
[2024-02-16 10:23] VITALS: BP 114/61; PULSE 57; RESP 16; TEMP 36.6; O2SAT 98
[2024-02-16 11:02] VITALS: BP 114/61; PULSE 57; RESP 16; TEMP 36.6; O2SAT 98
== END 2024-02-16 11:03 | disposition home or self-care (01) ==
PROVIDERS: Emergency Provider Emergency Medicine; PCP Internal Medicine
DX: K92.2 Gastrointestinal hemorrhage, unspecified (principal)
CPT/HCPCS: 36415; 80053; 85025; 96361; 96374; 99284; 99285; J2470

== ENCOUNTER 2024-02-19 15:21 | Outpatient (REF) | payer OTHER, SELFPAY ==
[2024-02-19 16:32] LABS: Hematocrit 34.5 % (42.0-52.0); Hemoglobin 12.5 g/dl (14.0-18.0); Mean Corpuscular HGB Conc 36.2 g/dl (31.0-36.0); Mean Corpuscular Hemoglobin 30.1 pg (27.0-33.0); Mean Corpuscular Volume 83.1 fL (80.0-98.0); Mean Platelet Volume 12.1 fL (9.4-12.4); Platelet Count 266 X10*3/uL (160-400); Red Blood Count 4.15 X10*6/uL (4.60-5.80); Red Cell Distribution Width 11.9 % (11.0-16.0); White Blood Count 11.3 X10*3/uL (4.8-10.8)
== END 2024-02-19 15:22 | disposition home or self-care (01) ==
LOC: HO.LAB 15:21
PROVIDERS: PCP Internal Medicine; Visit Provider Internal Medicine
DX: K92.0 Hematemesis (principal)
CPT/HCPCS: 36415; 85027

== ENCOUNTER 2024-03-10 10:06 | Outpatient (AMB) | payer OTHER, SELFPAY ==
--- NOTE | 2024-03-10 10:09 | A.OFFVIS_ITS ---
Vital Signs 03/10/24 10:10 Height 6 ft 1 in Weight 206 lb BMI 27.2 Intake Visit Reasons: OV- Right Knee MRI review Intake Note: Kyle is a 24 year old male who presents today for an MRI review of his right knee. Patient reports that on 01/26/24 he was playing basketball, went for a layup and landing wrong twisting the knee. Allergies amoxicillin [AMOXICILLIN] Allergy (Unknown, Verified 03/10/24 10:10) HIVES HPI HPI OV- Right Knee MRI review: Details: Kyle is a 24 year old male who presents today for an MRI review of his right knee. Patient reports that on 01/26/24 he was playing basketball, went for a layup and landing wrong twisting the knee. He felt a quick giving way and immediate pain. He was unable to continue playing. He had an MRI and is here today for review. He is walking without a cane. He has limited extension but no locking. [facility] Medical History Asthma Surgical History History of nasal surgery Social History Alcohol intake: unknown Patient Tobacco Use Status: Never used Tobacco Current occupational status: employed Current occupation: youth counselor Physical Exam Vital Signs: BMI result Body Mass Index 27.2 Const General: cooperative, healthy appearing, no acute distress, well developed and alert HEENT Head: Yes normal to inspection, Yes normocephalic and Yes atraumatic Mouth: moist mucous membranes Eyes General: appearance normal, both eyes and all related structures EOM: EOMs intact bilaterally Chest Other: no audible wheezing. Resp Other: No audible wheezing Effort & Inspection: normal respiratory effort Cardio Other: Radial pulse palpable with no rythmic abnormalities Back/Spine/Pelvis Cervical Spine: normal cervical lordosis Skin General skin exam: no rashes or lesions noted Neuro General: no focal motor deficits Extrem Other: 10-130 degrees Trace effusion Almost get it straight with passive extension but tightness in the hamstring region. Mild posteromedial joint line tenderness and mildly positive Sánchez's 2+ Alf's with negative pivot shift Psych Appearance: grossly normal and well kempt Mental Status: mental status grossly normal Speech and movement: Normal speech and movement present Affect: normal affect Attitude: cooperative Results Reviewed Results Reviewed: I personally reviewed the MR images. 1. Tear of the posterior horn of the medial meniscus. 2. Tear of the anterior cruciate ligament most likely complete. Bone contusion/injury pattern consistent with acute ACL tear. 3. Partial tear of the medial collateral ligament. 4. Joint effusion and Khanna's cyst. Assessment & Plan Assessment & Plan (1) ACL (anterior cruciate ligament) rupture: Code(s): S83.519A - Sprain of anterior cruciate ligament of unspecified knee, initial encounter Category: Medical Plan: Acute ACL tear in an active and healthy. He enjoys playing basketball and I recommend ACL reconstruction with hamstring allograft and possible autograft. I discussed with him the risks benefits and alternatives including, but not limited to, the risk of infection, stiffness, re-injury, failure to return to prior level of activity as well as medical complications associated with surgery. I also discussed the possibility of meniscectomy versus meniscal repair. He needs to get into PT pre operatively to optimize his range of motion. I do not think this is a mechanical obstruction to extension although it is possible. I discussed this with him and he will work on. (2) Medial meniscus tear: Code(s): S83.249A - Other tear of medial meniscus, current injury, unspecified knee, initial encounter Category: Medical Plan: Orders: Orders PT Evaluation and Treatment Today S83.249A - Other tear of medial meniscus, current injury, unspecified knee, initial encounter, S83.519A - Sprain of anterior cruciate ligament of unspecified knee, initial encounter Coding Level of Care Code Est Pt Level 4 (63365) Diagnoses ACL (anterior cruciate ligament) rupture S83.519A Medial meniscus tear S83.249A
[2024-03-10 10:10] VITALS: BMI 27.2
== END 2024-03-10 10:53 | disposition home or self-care (01) ==
PROVIDERS: PCP Internal Medicine; Visit Provider Orthopaedic Surgery
DX: S83.511A Sprain of anterior cruciate ligament of right knee, initial encounter (principal); S83.241A Other tear of medial meniscus, current injury, right knee, initial encounter; X50.0XXA Overexertion from strenuous movement or load, initial encounter
CPT/HCPCS: 99214

== ENCOUNTER → 2024-03-10 10:06 | Outpatient (BNVA) | payer OTHER, SELFPAY | PROVIDERS: PCP Internal Medicine; Visit Provider Orthopaedic Surgery | DX: S83.511A Sprain of anterior cruciate ligament of right knee, initial encounter (principal); S83.241A Other tear of medial meniscus, current injury, right knee, initial encounter; X50.1XXA Overexertion from prolonged static or awkward postures, initial encounter; Y93.67 Activity, basketball; Y92.9 Unspecified place or not applicable; Y99.9 Unspecified external cause status | CPT/HCPCS: 99212 ==

== ENCOUNTER 2024-03-25 11:00 | Outpatient (RCR) | payer OTHER, SELFPAY ==
--- NOTE | 2024-03-20 10:49 | MHC.PT.EP ---
[facility] [place] Office [place] Office [place] Office [address] [phone] F: [phone] F: [phone] F: [phone] F: [phone] Physical Therapy Plan of Care Date of Evaluation: 03/20/24 Date of Surgery: NA Diagnosis: Other tear of medial meniscus, current injury, unspecified knee, initial encounter Sprain of ACL of unspecified knee, initial encounter Medial meniscus tear, ACL rupture Assessment: Kyle is a 24 year male who is referred to PT for Other tear of medial meniscus, current injury, unspecified knee, initial encounter, Sprain of ACL of unspecified knee, initial encounter, Medial meniscus tear, ACL rupture . He injured his R knee about 2 months back while playing basket ball. He is schedules for ACL repair on 03/26/24. On PT examination he presents with no TTP, 0/10 pain, decreased R Knee ROM, decreased R LE strength, quad lag, impaired posture, balance and gait. He lives with his parents and is independent with all ADLS but has difficulty with them. He works as a youth counselor and enjoys playing basket ball, soft ball, pickle ball, foot ball, and soccer. He would benefit from skilled PT to address the aforementioned impairments and improve tolerance to functional activities. Frequency and Duration: The patient will be seen 2/week for 1 week Short Term Goals: Shelter Goals: 1. 1. Pt will demonstrate initiation of HEP in 1 week 2. Pt will demonstrate 50% improvement in quad lag will be independent with all HEP in 1 week. Treatment Plan: Modalities to reduce pain, spasms and effusion. Manual therapy to restore motion and function. Therapeutic exercise to improve strength and flexibility. Neuromuscular re-education for posture and balance. Therapeutic activities to return to functional activities of daily living. Electronically signed by: Emerald Ortiz PT DPT Please sign and return to therapist. Thank you for your referral.
--- NOTE | 2024-04-07 11:09 | MHC.PT.DC ---
[facility] [place] Office [place] Office [place] Office [address] [facility] [phone] F: [phone] F: [phone] F: [phone] F: [phone] Physical Therapy Discharge Report Diagnosis: Other tear of medial meniscus, current injury, unspecified knee, initial encounter Sprain of ACL of unspecified knee, initial encounter Medial meniscus tear, ACL rupture Date of Surgery: NA Date of Evaluation: 03/20/24 Date of Discharge: 04/07/24 Treatments to Date: 2 Cancellations to Date: 0 No Shows to Date: 0 Discharge Status: Achieved Goals Improved Function Independent with HEP Discharge Summary: Kyle attended his 2 pre op visits and has been d/c from PT. He will return to PT post op. Electronically signed by: Emerald Ortiz PT DPT Please sign and return to therapist. Thank you for your referral.
== END 2024-04-07 11:10 | disposition home or self-care (01) ==
LOC: HO.PT 11:00
PROVIDERS: PCP Internal Medicine; Visit Provider Orthopaedic Surgery
DX: S83.241D Other tear of medial meniscus, current injury, right knee, subsequent encounter (principal); S83.511D Sprain of anterior cruciate ligament of right knee, subsequent encounter
CPT/HCPCS: 97110; 97112; 97116; 97161

== ENCOUNTER 2024-03-26 06:46 | Day surgery (SDC) | payer OTHER, SELFPAY ==
[2024-03-24 09:27] VITALS: BMI 27.2
--- NOTE | 2024-03-24 14:01 | HO.ANESPROP2 ---
Documented by User: Cheri Akhtar NP 03/24/24 14:05 HPI - Anesthesia Eval Consult details Narrative: 24yo M for Right ACL with Auto Graft with Allograft available s/p ACL injury pt taking NSAID. Started with GIB - seen in [facility], symptoms resolved at time of phone assessment. Planned GI visit 04/2024 [facility] Active Problems Active Problems: All Active Problems Medial meniscus tear (Acute) ACL (anterior cruciate ligament) rupture (Acute) Internal derangement of right knee (Acute) Past Medical History Medical History Asthma Surgical History Surgical History History of nasal surgery Social History Social History Alcohol intake: unknown Patient Tobacco Use Status: Never used Tobacco Use of substances other than those prescribed or required for medical reasons: Yes Are you DNR?: No Advance Directives: No Advance Directives Information Provided: Yes Current occupational status: employed Current occupation: youth counselor Meds Allergies Allergy/AdvReac Type Severity Reaction Status Date / Time amoxicillin [AMOXICILLIN] Allergy Unknown HIVES Verified 03/26/24 07:23 Exam Height,Weight and Vital Signs: Height 6 ft 1 in Weight 93.44 kg Pertinent Lab Results Pertinent Lab Results: Laboratory Tests 02/16/24 02/19/24 08:38 15:30 WBC 11.3 H Hgb 12.5 L Hct 34.5 L Plt Count 266 Sodium 140 Potassium 3.9 Chloride 107 Carbon Dioxide 23 BUN 23 H Creatinine 0.89 Assessment and Plan Assessment Anesthesia Assessment: Chart Reviewed Documented by User: Nisha Peter MD 03/26/24 08:04 [facility] Past Medical History Medical History Asthma Surgical History Surgical History History of nasal surgery History of Problems with Anesthesia: No Social History Social History Alcohol intake: unknown Patient Tobacco Use Status: Never used Tobacco Use of substances other than those prescribed or required for medical reasons: Yes Are you DNR?: No Advance Directives: No Advance Directives Information Provided: Yes Current occupational status: employed Current occupation: youth counselor Meds Allergies Allergy/AdvReac Type Severity Reaction Status Date / Time amoxicillin [AMOXICILLIN] Allergy Unknown HIVES Verified 03/26/24 07:23 Exam Airway Mallampati Class: III TM Dist: >3cm Neck ROM: Full Loose/Missing/Broken Teeth: No Heart: RRR Lungs: CTA Assessment and Plan Assessment Anesthesia Assessment: Anesthesia Plan Discussed Final Anesthetic Review History of Problems with Anesthesia: No NPO: Yes ASA Class: II Final Preanesthetic Review: Meds/Allgs Chart Reviewed, Consent Obtained/Reviewed and Anes Risks/Benef Reviewed Patient Risk: Low Procedure Risk: Low Anesthetic Plan Anesthetic Plan: GA Disposition: Standard PACU
--- NOTE | 2024-03-26 07:37 | MHC.SHP ---
Pre-Procedural Eval Section A - 24 Hr Update-Section A only Date of Service: 03/26/24 The patient is an INPATIENT: No Changes since office visit: No Cold of Flu in the past 2 weeks, No New Medical Problems, No Changes in Medication and No Patient answered all questions The patient has been examined within 24 hours of the surgical procedure. The History & Physical has been completed within 30 days and I have reviewed it.: Yes Section B - Complete if H&P > 30 days Chief Complaint: Sprain of anterior cruciate ligament of right knee Allergies: Allergies Allergy/AdvReac Type Severity Reaction Status Date / Time amoxicillin [AMOXICILLIN] Allergy Unknown HIVES Verified 03/26/24 07:23 Plan I have reviewed the history and physical and performed a pertinent physical examination on my patient. No changes have occurred unless specified. Time Spent With Patient Time: Total time managing care of this patient today ____ minutes.
[2024-03-26 07:46] VITALS: BP 106/72; PULSE 68; RESP 16; TEMP 37; O2SAT 98; BMI 28.8
[2024-03-26 08:02] LABS: Hematocrit 34.9 % (42.0-52.0); Hemoglobin 11.9 g/dl (14.0-18.0); Mean Corpuscular HGB Conc 34.1 g/dl (31.0-36.0); Mean Corpuscular Hemoglobin 28.2 pg (27.0-33.0); Mean Corpuscular Volume 82.7 fL (80.0-98.0); Mean Platelet Volume 10.5 fL (9.4-12.4); Platelet Count 283 X10*3/uL (160-400); Red Blood Count 4.22 X10*6/uL (4.60-5.80); Red Cell Distribution Width 12.8 % (11.0-16.0); White Blood Count 7.4 X10*3/uL (4.8-10.8)
--- NOTE | 2024-03-26 10:57 | PM.OP ---
Brief Operative Note Date of Service: 03/26/24 Pre-op diagnosis: right knee ACL tear Post-op diagnosis: other (Right knee ACL tear and lateral meniscus tear) Procedure: Right ACL reconstruction with autograft and lateral meniscal root repair Implants: [employer]ga [employer]hew Footprint anchor x 2, ACL endobutton adn 9x25mm tibial interference screw Surgeon: Noam Ramos MD Anesthesia: GLMA and regional Was an Mail Machine Operator used for this Procedure?: Yes Mail Machine Operator: Fidelina Florez Estimated blood loss (mL): 25 Tourniquet time (min): 60 IV fluids (mL): 1,200 Pathology: none sent Condition: stable Disposition: PACU
[2024-03-26 11:14] VITALS: BP 132/58; PULSE 70; RESP 16; TEMP 36.7; O2SAT 100
[2024-03-26 11:19] VITALS: BP 131/67; PULSE 99; RESP 16; O2SAT 98
[2024-03-26 11:24] VITALS: BP 131/80; PULSE 82; RESP 18; O2SAT 98
[2024-03-26 11:29] VITALS: BP 138/78; PULSE 96; RESP 20; O2SAT 99
[2024-03-26 11:44] VITALS: BP 147/69; PULSE 70; RESP 20; TEMP 36.3; O2SAT 99
--- NOTE | 2024-03-28 11:54 | P.OP_ITS ---
Operative Note Operative Note Date of Service: 03/26/24 Narrative: Date of Service: 03/26/24 Pre-op diagnosis: right knee ACL tear Post-op diagnosis: other (Right knee ACL tear and lateral meniscus tear) Procedure: Right ACL reconstruction with autograft and lateral meniscal root repair Implants: Ortega [employer]hew Footprint anchor x 2, ACL endobutton; 9x25mm tibial interference screw Surgeon: Noam Ramos MD Anesthesia: GLMA and regional Was an Cytology Technologist used for this Procedure?: Yes Cytology Technologist: Fidelina Florez Estimated blood loss (mL): 25 Tourniquet time (min): 60 IV fluids (mL): 1,200 Pathology: none sent Condition: stable Disposition: PACU Procedure in detail: Patient was brought to the operating room placed supine on the arthroscopic table and prepped and draped in standard sterile fashion. A time-out was called to identify proper site proper procedure proper surgeon and IV antibiotics per weight were administered. Under anesthesia she had a + pivot shift. I made a 2cm inc 2-3 cm medial to the tibial tubercle. I dissected bluntly down to the sartorious fascia and incised this in lien iwth the skin incision. I identified the pes tendonw and used a 90 deg clamp to isole and remove the inferior adhesions. A tendon stripped was used to remove the SemiT and the Gracilis. On the back table these were cleaned of muscle and qudrupled into a 8.5 mm sizer. Whiloe this was being done by my assistant professor of sociology I began by exsanguinating the limb and insufflating tourniquet to 300 mm Hg. Then made a standard anterolateral stab incision. The knee was insufflated with water and 30 degree arthroscope was placed. There was grade 1 fibrillations of the patella but overall suprapatellar pouch and the gutters were clean. I descended into the medial compartment where I made my far medial portal under direct visualization. There was a normal medial meniscus. I examined the lateral compartment and the ACL. There was a empty wall sign and I placed the patient in a figure 4 position and assessed the lateral meniscus. There was a complete tear of the lateral root. I debrided the scar tissue off the PCL and remove the stump of the ACL. I then placed 2 looped sutures through the end of the lateral root. I used a curette to debride the insertion site down to subchondral bone and a root drill was passed from the lateral aspect of the tibial tubercle into the posterolateral knee under direct visualization. A Nitinol wire was then used to retrieve the 2 ends of the loop suture and this was brought through the tibia. I had excellent recreation of the anatomy of the root. Once this was done I turned my attention to the ACL. I debrided the stump and acl footprint and performed a limited notchplasty. I then, through a far AM portal and a 7mm behind the back guide, drilled a k-wire through the LFC with the knee in hyper-flexion. I measured the tunnel as a 40 and then after sizing the allograft on the back table drilled a 32 mm tunnel with a 9 mm reamer. The final 8 mm was drilled iwth a 4.5 reamer. I then pulled a suture through the femoral tunnel and turned my attention to the tibia. I did examine the femoral tunnel and was satisfied with the posterior wall and its location low and medial at the anatomic footprint. I placed my tibial drill guide in 55 deg and, through a anteromedial inc just lateral to the tibial tubercle placed a k-wire into the notch exiting just medial to the anterior horn insertion of the lateral meniscus. I then over-reamed with a 9 reamer. I cleaned the tunnels up with a shaver. I then passed the allograft through the tibial tunnel and femoral tunnel and flipped the button. I then placed a Ortega and Nephew Footprint over the anterolateral tibia and tightened the lateral troot repair in 30 deg of flexion. I was satisfied with the and I then placed a tibial interference screw with the knee in hyper-extension while holding the graft taught. I added an additional Footprint anchor just distal to the interference screw for additional security. Once I was satisfied that the interference screw was buried I examined the ACL and the lateral meniscus repair. The repair was stable and the ACL was not impinging and there was a negative pivot shift. I then removed all instrumentation and closed the incisions with nylon. Patient was then placed in sterile dressings and a hinged knee brace. She was then extubated brought recovery room stable condition. There were no known complications.
== END 2024-03-26 12:23 | disposition home or self-care (01) ==
LOC: HO.SSS 06:46
PROVIDERS: Nurse Practitioner; PCP Internal Medicine; Visit Provider Orthopaedic Surgery
PROC: (CPT 27428; principal; 2024-03-26 09:30)
DX: S83.511A Sprain of anterior cruciate ligament of right knee, initial encounter (principal); S83.281A Other tear of lateral meniscus, current injury, right knee, initial encounter; X50.1XXA Overexertion from prolonged static or awkward postures, initial encounter; Y93.67 Activity, basketball; Y92.9 Unspecified place or not applicable; Y99.8 Other external cause status; J45.909 Unspecified asthma, uncomplicated; Z79.899 Other long term (current) drug therapy; Z99.89 Dependence on other enabling machines and devices; Z88.1 Allergy status to other antibiotic agents; Z98.890 Other specified postprocedural states
CPT/HCPCS: 29882; 29888; 36415; 85027; C1713; J0131; J0171; J0665; J0736; J1100; J1885; J2003; J2250; J2405; J2704

== ENCOUNTER 2024-04-03 09:36 | Outpatient (REF) | payer OTHER, SELFPAY ==
--- NOTE | ~2024-04-03 | XR_ITS ---
EXAMINATION: XR KNEE RIGHT 2 VIEWS CLINICAL INFORMATION: Pain in unspecified knee M25.569. COMPARISON: XR Right knee 01/27/2024 TECHNIQUE: Two views of the right knee. FINDINGS: Large joint effusion. Postsurgical changes with surgical biopsy along the distal lateral femur and lucencies characteristic of tunneling in the proximal tibia. Mild narrowing of the medial compartment. Some narrowing in the distal femur. Faint calcification/ossification along the medial aspect medial femoral condyle of uncertain significance. XR/XR knee RT 2V IMPRESSION: 1. Large joint effusion. Postsurgical changes. 2. Mild degenerative changes. Electronically signed by: Ashley Gregory MD 06/10/2024 09:07 AM DARVIN
== END 2024-04-03 09:37 | disposition home or self-care (01) ==
LOC: HO.HOSX 09:36
PROVIDERS: Visit Provider Physician Assistant
DX: M25.561 Pain in right knee (principal); S83.249A Other tear of medial meniscus, current injury, unspecified knee, initial encounter; Z98.890 Other specified postprocedural states
CPT/HCPCS: 73560; 99212

== ENCOUNTER 2024-04-03 13:35 | Outpatient (AMB) | payer OTHER, SELFPAY ==
--- NOTE | 2024-04-03 13:41 | A.OFFVIS_ITS ---
Intake Visit Reasons: PO RT Knee ACL 03/26/24 NE Intake Note: Kyle is a 24 year old male who presents today for a post op appointment s/p RT Knee ACL 03/26/24 NE. Patient reports he is doing well, having some mild pain when trying to straighten his leg. Allergies amoxicillin [AMOXICILLIN] Allergy (Unknown, Verified 04/03/24 13:41) HIVES HPI HPI PO RT Knee ACL 03/26/24 NE: Details: 24-year-old male who presents in the office today 8 days status post right ACL reconstruction with autograft and lateral meniscus root repair which was performed on 03/26/[address] Ramos. While in the office today, the patient reports experiencing mild pain when attempting to straighten his right lower extremity. Otherwise, he is doing well. [facility] Medical History Asthma Surgical History History of nasal surgery Social History Alcohol intake: unknown Patient Tobacco Use Status: Never used Tobacco Current occupational status: employed Current occupation: youth counselor Review of Systems Const All systems reviewed & are unremarkable except as noted in HPI and below Physical Exam Const General: cooperative, healthy appearing and no acute distress Resp Effort & Inspection: normal respiratory effort and able to speak in complete sentences Cardio Rate: regular rate Peripheral pulses: Peripheral pulses 2+ throughout GI Palpation (GI): Soft to palpation Skin Lesions: no lesions Rashes: no rashes Extrem Other: Right knee: Incision sites are clean, dry and intact. No surrounding erythema or drainage. No signs of infections. NVI. Assessment & Plan Assessment & Plan (1) Medial meniscus tear: Code(s): S83.249A - Other tear of medial meniscus, current injury, unspecified knee, initial encounter Category: Medical (2) S/P ACL reconstruction: Code(s): Z98.890 - Other specified postprocedural states Category: Medical Plan Mr. Fung is a 24-year-old male who presents in the office today 8 days status post right ACL reconstruction with autograft and lateral meniscus root repair which was performed on 03/26/[address] Ramos. While in the office today, the patient reports experiencing mild pain when attempting to straighten his right lower extremity. Otherwise, he is doing well. The patient will remain in the brace for 6 weeks post-op or until the quad control allows. He was instructed no bending past 90 degrees to protect the meniscus root repair. The patient will attend physical therapy. Follow-up will be in [address] Ramos, or sooner if needed. Orders: Orders XR knee RT 2V 04/03/24 M25.569 - Pain in unspecified knee Patient Instructions: Scribed by Sandhya Wiley medical billing coder, for Fidelina Florez PA-C on 04/03/24 at 2:05 pm EST. Coding Level of Care Code Global (45484) Diagnoses Medial meniscus tear S83.249A S/P ACL reconstruction Z98.890
== END 2024-04-03 14:24 | disposition home or self-care (01) ==
LOC: HO.HOS 13:36
PROVIDERS: PCP Internal Medicine; Visit Provider Physician Assistant
DX: S83.249A Other tear of medial meniscus, current injury, unspecified knee, initial encounter (principal); Z98.890 Other specified postprocedural states
CPT/HCPCS: 99024

== ENCOUNTER 2024-04-04 12:47 | Outpatient (AMB) | payer OTHER, SELFPAY ==
--- NOTE | 2024-04-04 12:49 | A.OFFVIS_ITS ---
Vital Signs 04/04/24 12:52 Height 6 ft 1 in Weight 196 lb 3.382 oz BMI 25.9 BP 124/83 Blood Pressure Location Lt brachial Position Sitting Pulse 73 Intake Visit Reasons: 15 min OK by Elias Intake Note: Kyle presents in the office as a new patient. CC: He states that he was having internal bleeding. He got diagnosed with an ulcer and had blood in the stool. He states that he is okay now! Hardware Technician Required: No Allergies amoxicillin [AMOXICILLIN] Allergy (Unknown, Verified 04/04/24 12:52) ANTONIO HPI Comments Details: 24 y.o M with asthma who is here for abd pain. Jan 29 had an R ACL and meniscus injury while playing basketball. Was taking ibuprofen 2400/day x few weeks which caused abd pain and black stools x 2-3 times a day x 3-4 days. Was seen in ER in mid Feb for this and was started on protonix for possible PUD vs gastritis. Since then has discontinued all NSAIDs was only on tylenol. Stools went back to baseline within a few days of doing the above. Recheck CBC with mild anemia. Now s/p ACL surgery and doing well. No abd pain, N,V, melena. [facility] Medical History Asthma Surgical History History of nasal surgery Social History Alcohol intake: unknown Patient Tobacco Use Status: Never used Tobacco Current occupational status: employed Current occupation: youth counselor Review of Systems Const All systems reviewed & are unremarkable except as noted in HPI and below Physical Exam Vital Signs: Last Vital Signs Pulse 73 04/04/24 12:52 BP 124/83 04/04/24 12:52 BMI result Body Mass Index 25.9 No apparent distress Nonicteric Abdomen soft, nondistended Alert and oriented x3, normal gait Assessment & Plan Assessment & Plan (1) NSAID induced gastritis: Code(s): K29.60 - Other gastritis without bleeding; T39.395A - Adverse effect of other nonsteroidal anti-inflammatory drugs [NSAID], initial encounter Category: Medical (2) Melena: Code(s): K92.1 - Melena Category: Medical (3) Anemia: Code(s): D64.9 - Anemia, unspecified Category: Medical Plan Not symptomatic now. Based on review of clinical presentation likely had NSAID gastritis which resolved with cessation of NSAIDs and initiation of PPI. Discussed diagnostic EGD with pt who'd like to hold off for now since he feels back to baseline and no further complaints. Plan: - Iron supplementation x 4 weeks. Pt aware can be constipating and ok to take senna PRN - Recheck CBC with iron studies in 4 weeks - Deferring EGD as per pt's preference but was advised to call us if recurrence of sx or if H/H does not improve on recheck Orders: Orders Complete Blood Count no Diff 4 Weeks K29.60 - Other gastritis without bleeding, T39.395A - Adverse effect of other nonsteroidal anti-inflammatory drugs [NSAID], initial encounter Ferritin 4 Weeks K29.60 - Other gastritis without bleeding, T39.395A - Adverse effect of other nonsteroidal anti-inflammatory drugs [NSAID], initial encounter IRON PROFILE 4 Weeks K29.60 - Other gastritis without bleeding, T39.395A - Adverse effect of other nonsteroidal anti-inflammatory drugs [NSAID], initial encounter Medications: New ferrous fumarate 324 mg PO DAILY 4 weeks 28 tabs 0RF Coding Level of Care Code New Pt Level 4 (06632) Diagnoses NSAID induced gastritis K29.60; T39.395A Melena K92.1 Anemia D64.9
[2024-04-04 12:52] VITALS: BP 124/83; PULSE 73; BMI 25.9
== END 2024-04-04 13:37 | disposition home or self-care (01) ==
LOC: HO.HGI 12:48
PROVIDERS: PCP Internal Medicine; Visit Provider Internal Medicine
DX: K29.60 Other gastritis without bleeding (principal); T39.395A Adverse effect of other nonsteroidal anti-inflammatory drugs [NSAID], initial encounter; K92.1 Melena; D64.9 Anemia, unspecified
CPT/HCPCS: 99204

== ENCOUNTER → 2024-04-04 12:47 | Outpatient (BNVA) | payer OTHER, SELFPAY | PROVIDERS: PCP Internal Medicine; Visit Provider Internal Medicine | DX: K29.60 Other gastritis without bleeding (principal); T39.395A Adverse effect of other nonsteroidal anti-inflammatory drugs [NSAID], initial encounter; K92.1 Melena; D64.9 Anemia, unspecified | CPT/HCPCS: 99202 ==

== ENCOUNTER 2024-05-05 11:10 | Outpatient (AMB) | payer OTHER, SELFPAY ==
--- NOTE | 2024-05-05 11:27 | MHC.OFFVIS ---
Intake Visit Reasons: PO RT Knee ACL 03/26/24 NE Intake Note: Kyle is a 24 year old male who presents today for a post op appointment s/p RT Knee ACL 03/26/24 NE. Patient reports that he is doing well, he continues to WBAT with crutches and used AROM Brace Allergies amoxicillin [AMOXICILLIN] Allergy (Unknown, Verified 04/04/24 12:52) HIVES HPI HPI PO RT Knee ACL 03/26/24 NE: Details: Kyle is a 24 year old male who presents today for a post op appointment s/p RT Knee ACL reconstruction with autograft and lateral meniscus root repair 03/26/24 NE. Patient reports that he is doing well, he continues to WBAT with crutches and used AROM Brace PFSH Medical History Asthma Surgical History History of nasal surgery Social History Alcohol intake: unknown Patient Tobacco Use Status: Never used Tobacco Current occupational status: employed Current occupation: youth counselor Physical Exam Extrem Other: mild effusion 10-100active 5-100 passive portals c/d/i stable dominik Assessment & Plan Assessment & Plan (1) S/P ACL reconstruction: Code(s): Z98.890 - Other specified postprocedural states Category: Surgical Plan: unlcok brace and wean crutches. continue PT (2) H/O medial meniscus repair of right knee: Code(s): Z98.890 - Other specified postprocedural states Category: Surgical Plan: f/u 4 weeks Coding Level of Care Code Global (05146) Diagnoses S/P ACL reconstruction Z98.890 H/O medial meniscus repair of right knee Z98.890
== END 2024-05-05 11:59 | disposition home or self-care (01) ==
PROVIDERS: PCP Internal Medicine; Visit Provider Orthopaedic Surgery
DX: Z98.890 Other specified postprocedural states (principal)
CPT/HCPCS: 99024

== ENCOUNTER → 2024-05-05 11:10 | Outpatient (BNVA) | payer OTHER, SELFPAY | PROVIDERS: PCP Internal Medicine; Visit Provider Orthopaedic Surgery | DX: Z47.89 Encounter for other orthopedic aftercare (principal); Z98.890 Other specified postprocedural states | CPT/HCPCS: 99212 ==

== ENCOUNTER 2024-05-05 12:11 | Outpatient (REF) | payer OTHER, SELFPAY ==
[2024-05-05 14:02] LABS: Hematocrit 40.9 % (42.0-52.0); Hemoglobin 13.6 g/dl (14.0-18.0); Mean Corpuscular HGB Conc 33.3 g/dl (31.0-36.0); Mean Corpuscular Hemoglobin 27.1 pg (27.0-33.0); Mean Corpuscular Volume 81.5 fL (80.0-98.0); Platelet Count 228 X10*3/uL (160-400); Red Blood Count 5.02 X10*6/uL (4.60-5.80); White Blood Count 8.4 X10*3/uL (4.8-10.8)
[2024-05-05 14:52] LABS: Iron 99 mcg/dL (45-160); Percent Iron Saturation 31 % (15-50); Total Iron Binding Capacity 317 mcg/dL (228-428); Unsaturated Iron Binding 218 ug/dL
[2024-05-05 14:57] LABS: Ferritin 34 ng/mL (20-250)
== END 2024-05-05 12:12 | disposition home or self-care (01) ==
LOC: HO.LAB 12:11
PROVIDERS: PCP Internal Medicine; Visit Provider Internal Medicine
DX: K29.60 Other gastritis without bleeding (principal); T39.395A Adverse effect of other nonsteroidal anti-inflammatory drugs [NSAID], initial encounter
CPT/HCPCS: 36415; 82728; 83540; 85027

== ENCOUNTER 2024-05-26 12:57 | Outpatient (AMB) | payer OTHER, SELFPAY ==
--- NOTE | 2024-05-26 13:01 | MHC.OFFVIS ---
Vital Signs 05/26/24 13:02 Height 6 ft 1 in Weight 196 lb BMI 25.9 Intake Visit Reasons: PO RT Knee ACL 03/26/24 NE Intake Note: Kyle is a 24 year old male who presents today for a post op appointment s/p RT Knee ACL 03/26/24 NE. Patient reports that he is doing well, he is struggling to reach full extenion. He continues to work with PT but he is struggling to keep full extension. Allergies amoxicillin [AMOXICILLIN] Allergy (Unknown, Verified 05/26/24 13:03) HIVES HPI HPI PO RT Knee ACL 03/26/24 NE: Details: Kyle is a 24 year old male who presents today for a post op appointment s/p RT Knee ACL 03/26/24 NE. Patient reports that he is doing well, he is struggling to reach full extenion. He continues to work with PT but he is struggling to keep full extension. [facility] Medical History Asthma Surgical History History of nasal surgery Social History Alcohol intake: unknown Patient Tobacco Use Status: Never used Tobacco Current occupational status: employed Current occupation: youth counselor Physical Exam Vital Signs: BMI result Body Mass Index 25.9 Extrem Other: Moderate suprapatellar effusion with a 3-4 degree loss of terminal extension and weak quad. Stable Alf's. No pain with range of motion. Office Procedures Joint Inj/Aspir; Non-Pain Clin Joint Injection/Drain Details: Aspirated right knee Site was prepped using aseptic technique. Patient tolerated the procedure well. Approach Used: lateral parapatellar Shoulders, Hips, Knees, Knee Large Joint Injection [id number]: Right Knee Coding Procedure code (CPT) selection complete Assessment & Plan Assessment & Plan (1) H/O medial meniscus repair of right knee: Code(s): Z98.890 - Other specified postprocedural states Category: Surgical Plan: Status post lateral root repair doing well. Continue root protocol. (2) S/P ACL reconstruction: Code(s): Z98.890 - Other specified postprocedural states Category: Surgical Plan: Status post ACL reconstruction. Doing well but there is a slight loss of terminal extension. I aspirated approximately 30 mL of serosanguineous fluid from his right knee. Continue aggressive quad activation and extension exercises. I sent a prescription of Naprosyn to his pharmacy. Follow up 4 weeks Medications: New naproxen (EC-Naprosyn) 500 mg PO BID PRN 60 tabs 0RF pain Coding Level of Care Code Global (07461) Diagnoses H/O medial meniscus repair of right knee Z98.890 S/P ACL reconstruction Z98.890 CPT Codes Shoulders, Hips, Knees, - Knee Large Joint Injection : Right Knee ([id number])
[2024-05-26 13:02] VITALS: BMI 25.9
== END 2024-05-26 13:31 | disposition home or self-care (01) ==
PROVIDERS: PCP Internal Medicine; Visit Provider Orthopaedic Surgery
DX: M25.461 Effusion, right knee (principal); Z98.890 Other specified postprocedural states
CPT/HCPCS: 20610; 99024

== ENCOUNTER → 2024-05-26 12:57 | Outpatient (BNVA) | payer OTHER, SELFPAY | PROVIDERS: PCP Internal Medicine; Visit Provider Orthopaedic Surgery | DX: Z47.89 Encounter for other orthopedic aftercare (principal); Z98.890 Other specified postprocedural states | CPT/HCPCS: 20610; 99212 ==

== ENCOUNTER 2024-06-26 09:22 | Outpatient (AMB) | payer OTHER, SELFPAY ==
[2024-06-26 09:23] VITALS: BMI 25.9
--- NOTE | 2024-06-26 09:23 | MHC.OFFVIS ---
Vital Signs 06/26/24 09:23 Height 6 ft 1 in Weight 196 lb BMI 25.9 Intake Visit Reasons: PO RT Knee ACL 03/26/24 NE Intake Note: Kyle is a 24 year old male who presents today for a three month post operative appointment s/p Right Knee ACL Reconstruction 03/26/24. He has had some loss of terminal extension. The right knee was aspirated on 05/26/24 where about 30mL if fluid was removed. Rx for Naproxen was sent to pharmacy. Patient rpeorts that he is doing well, much better since his last visit. He has not been taking any medication - he avoids taking medication as he has history of a ulcer. Allergies amoxicillin [AMOXICILLIN] Allergy (Unknown, Verified 06/26/24 09:25) HIVES HPI HPI PO RT Knee ACL 03/26/24 NE: Details: Kyle is a 24 year old male who presents today for a three month post operative appointment s/p Right Knee ACL Reconstruction 03/26/24. He has had some loss of terminal extension. The right knee was aspirated on 05/26/24 where about 30mL if fluid was removed. Rx for Naproxen was sent to pharmacy. Patient reports that he is doing well, much better since his last visit. He has not been taking any medication - he avoids taking medication as he has history of a ulcer. FORMERLY [facility], [facility] Medical History Asthma Surgical History History of nasal surgery Social History Alcohol intake: unknown Patient Tobacco Use Status: Never used Tobacco Current occupational status: employed Current occupation: youth counselor Physical Exam Vital Signs: BMI result Body Mass Index 25.9 Extrem Other: 2-135 no effusion Expected quad atrophy compared to contralateral side. Stable Alf's. Assessment & Plan Assessment & Plan (1) S/P ACL reconstruction: Code(s): Z98.890 - Other specified postprocedural states Category: Surgical Plan: Doing very well status post lateral root repair and ACL reconstruction. Continue closed-chain strengthening and exercises. Follow up 3 months for initiation of dynamic ACL protocol. (2) Lateral meniscal tear: Code(s): S83.289A - Other tear of lateral meniscus, current injury, unspecified knee, initial encounter Category: Medical Plan: Coding Level of Care Code Global (17705) Diagnoses S/P ACL reconstruction Z98.890 Lateral meniscal tear S83.289A
== END 2024-06-26 09:39 | disposition home or self-care (01) ==
PROVIDERS: PCP Internal Medicine; Visit Provider Orthopaedic Surgery
DX: S83.281A Other tear of lateral meniscus, current injury, right knee, initial encounter (principal); S83.511A Sprain of anterior cruciate ligament of right knee, initial encounter
CPT/HCPCS: 99212

== ENCOUNTER → 2024-06-26 09:22 | Outpatient (BNVA) | payer OTHER, SELFPAY | PROVIDERS: PCP Internal Medicine; Visit Provider Orthopaedic Surgery | DX: Z47.89 Encounter for other orthopedic aftercare (principal); S83.289D Other tear of lateral meniscus, current injury, unspecified knee, subsequent encounter; Z98.890 Other specified postprocedural states | CPT/HCPCS: 99212 ==

== ENCOUNTER 2024-09-01 10:07 | Outpatient (RCR) | payer OTHER, SELFPAY ==
--- NOTE | 2024-04-03 09:36 | MHC.PT.EP ---
[facility] [place] Office [place] Office [place] Office [address] [phone] F: [phone] F: [phone] F: [phone] F: [phone] Physical Therapy Plan of Care Date of Evaluation: 04/03/24 Date of Surgery: 03/26/24 Diagnosis: POST-OP RIGHT ACL W/ HAMSTRING GRAFT (KP) Assessment: ZECHARIAH IS A PLEASANT 24 YO MALE WHO WAS PLAYING BASKETBALL IN JANUARY, LANDED FUNNY , IMMEDIATELY BEGAN TO SWELL AND WAS UNABLE TO PUT PRESSURE ON KNEE. TO ED AND REFERRED TO ORTHO. PRIOR TO SURGERY WAS USING ANTALGIC GAIT AND UNABLE TO FULLY EXTEND KNEE. UNDERWENT ACL REPAIR W/ HAMSTRING AUTOGRAPH W N.E. ON 03/26/24. UPON EXAM HE DEMONSTRATES THE EXPECTED IMPAIRMENTS OF DECREASED ROM, DECREASED STRENGTH, ALTERED POSTURE AND POSITIONING,ALTERED GAIT AND BALANCE, AND INCREASED PAIN AND EDEMA. FUNCTIONAL LIMITATIONS INCLUDE DECREASED ABILITY TO PERFORM HOMEMAKING AND SELF-CARE TASKS, DECREASED ABILITY TO PERFORM WALKING, RUNNING, JUMPING AND SQUATTING, INABILITY TO DRIVE AND PERFORM WORK TASKS, DECREASED PARTICIPATION IN COMMUNITY AND RECREATIONAL ACTIVITIES AND DISRUPTED SLEEP. THE Pt IS A GOOD CANDIDATE FOR SKILLED PT DUE TO AGE, POTENTIAL REMEDIATION OF IMPAIRMENTS, TYPICAL DISEASE/CONDITION PROGRESSION AND PROGNOSIS, COMORBIDITIES, AND MOTIVATION. PT WOULD BENEFIT FROM TAILORED PROGRAM OF THERAPEUTIC ACTIVITIES, FUNCTIONAL TRAINING, GAIT TRAINING, POSTURAL EDUCATION, NEUROMUSCULAR RE-EDUCATION, AND MODALITIES NEEDED. Frequency and Duration: The patient will be seen 2 X WEEK FOR 12 WEEKS Short Term Goals: INITIATE HEP AND PROMOTE SELF MANAGEMENT OF SYMPTOMS Fdc Goals: TO DEMONSTRATE FULL KNEE ROM, EQUAL FABIOLA TO DEMONSTRATE FULL LE STRENGTH, EQUAL FABIOLA TOSTAIRS WITH RECIPROCAL GAIT WITHOUT PAIN GREATER THAN 2/10 TO AMBULATE AD SARAH ON LEVEL AND UNEVEN SURFACES FOR FITNESS WITHOUT PAIN GREATER THAN 2/10 Treatment Plan: Modalities to reduce pain, spasms and effusion. Manual therapy to restore motion and function. Therapeutic exercise to improve strength and flexibility. Neuromuscular re-education for posture and balance. Therapeutic activities to return to functional activities of daily living. Electronically signed by: ELISHA ONEIL PT DPT Please sign and return to therapist. Thank you for your referral.
== END 2024-09-19 10:49 | disposition home or self-care (01) ==
LOC: HO.PT 10:07
PROVIDERS: PCP Internal Medicine; Visit Provider Physician Assistant
DX: Z98.890 Other specified postprocedural states (principal)
CPT/HCPCS: 97110; 97112; 97116; 97140; 97150; 97161; 97530

== ENCOUNTER 2024-09-18 08:23 | Outpatient (REF) | payer OTHER, SELFPAY ==
--- NOTE | ~2024-09-18 | XR_ITS ---
EXAMINATION: XR KNEE 1-2 VIEWS RIGHT HISTORY: Z98.890 - Other specified postprocedural states COMPARISON: Comparison is made with the prior examination dated 04/03/2024. FINDINGS: AP and lateral views of the right knee are submitted. The bones are osteopenic. Again seen are findings of prior ACL repair. There is no fracture or dislocation. The joint spaces are preserved. There is trace fluid in the suprapatellar recess. XR/XR knee RT 2V IMPRESSION: Trace joint effusion. Status post ACL repair. Electronically signed by: Dajuan Vogt MD 09/18/2024 03:54 PM EDT
--- OUTSIDE RECORDS SUMMARY | 2024-09-18 08:43 | XMS_ITS | Clinical Summary ---
Author Organization [facility] Address [address] [place] [address] Phone Care Team Providers Care Cell Coverer Name Role Phone Unavailable Primary Care Provider Unavailabl e Allergies Active Allergy Reactions Criticality Noted Date Comments Amoxicillin Hives Medications acetaminophen 325 MG tabletIndications: Mild intermittent asthma, uncomplicated Take 2 tablets (650 mg total) by mouth every 4 (four) hours as needed for fever. 30 tablet 1 7 Active Respiratory Therapy Supplies (NEBULIZER/ADULT MASK) kitIndications:Mil d intermittent asthma, uncomplicated To use with nebulizer to deliver albuterol every 4 hours as needed 1 each 8 Active cephalexin 250 MG/5ML suspension TAKE 10 ML BY MOUTH EVERY 6 HOURS FOR 10 DAYS 0 9 Active ibuprofen 100 MG/5ML suspension TAKE 30 ML BY MOUTH EVERY 6 HOURS NEEDED FOR PAIN OR FEVER 0 9 Active albuterol HFA 108 (90 Base) MCG/ACT inhalerIndications :Mild intermittent asthma, uncomplicated Inhale 2 puffs every 4 (four) hours as needed for wheezing or shortness of breath. 1 Units 1 Active loratadine 10 MG tabletIndications: Chronic seasonal allergic rhinitis Take 1 tablet (10 mg total) by mouth once daily. 30 tablet 5 1 Active Active Problems Problem Noted Date Diagnosed Date COVID-19 virus infection 08/05/2020 Overview (05/05/2021): Dx'ed 03/23 Er visit 05/04/21, tested positive Allergic rhinitis 05/01/2017 Mild intermittent asthma, uncomplicated 04/03/20 16 Immunizations Immunization Administration Dates Next Due DTaP 5 05/02/2005, 3,2001,05/21,2001 H1N1 04/12/2009 HPV, Quadrivalent 05/07/2013,07/17/2012,05/09/20 12 Hep A, ped/adol 02/18/2016,04/01/2015 Hep B, ped/adol 2001,2001,2001 Hib (PRP-T) 05/22/2002, 2,2001,03/21 IPV 05/02/2005, 2,2001,03/21 Influenza Split 03/10/2013, 2,04/24/2011,04/06 Influenza, injectable, quadrivalent 04/01/2015,1 07/10/2013 Influenza, injectable, quadr ivalent, preservative free 05/19/2020,04/03/2019,03/18/2018,05/01,02/18/2016 Influenza, injectable, trivalent 009,04/09/2008,02/25/2007,05/24,03/22/2004 MMR 05/02/2005,01/27/2002 Meningococcal B Trumenba 10/03/2019,04/03/2019 Meningococcal Conj (Menactra) MCV4P 05/01/2017,1 07/10/2011 Pneumococcal Conjugate 03/19/2003,2001,2001,03/21 Tdap 05/09/2012 Varicella 04/09/2008,01/27/2002 Family History Medical History Relation Name Comments Rheum arthritis Father Kyle Migraines Half-Sister 3 Eloise Obesity Half-Sister 4 Kelly Polycystic ovary syndrome Half-Sister 4 Kelly No Known Problems Mother Alma Delia No Known Problems Sister Luis Relation Name Status Comments Father Kyle Alive Father: Asthma Half-Sister 1 Alive Half sister (M ): Obesity Half-Sister 2 Alive Half sister (P ): Migraines Half-Sister 3 Eloise Alive Half-Sister 4 Kelly Alive Mother Alma Delia Alive Mother: Alive a nd well Other Family history of Elevated cholesterol, Family history of ADD/ADHD, No family history of *CVA/Stroke, No family history of Developmental dislocation of hip, Family history of Deafness, Family history of Migraines, No family history of Seizure disorder, No family history of *Heart Disease, Family history of Hypertension, Family history of Asthma, No family history of Strabismus, Family history of Obesity, Family history of *Dental caries, No family history of Cancer, Family history of Diabetes mellitus, No family history of *Sudden /NH under 55 Sister Luis Alive Sister: Alive a nd well Social History Tobacco Use Types Packs/Day Years Used Date Smoking Tobacco: Never Smokeless Tobacco: Never Comments:Never smoker Alcohol Use Standard Drinks/Week Comments No 0 (1 standard drink = 0.6 oz pur e alcohol) Hunger/Food Answer Date Recorded No 06/11/2020 Stable Housing Answer Date Recorded No 06/11/2020 Transportation Concerns Answer Date Rec orded No 06/11/2020 Hazards in Home Answer Date Recorded No 06/11/2020 Financing Utilities Answer Date Recorde d No 06/11/2020 Safety at Home Answer Date Recorded No 06/11/2020 Outside Support Answer Date Recorded No 06/11/2020 Understanding Health Concerns Answer Da te Recorded No 06/11/2020 Financing Health Concerns Answer Date R ecorded No 06/11/2020 Missing School or Work Answer Date Octaviano rded No 06/11/2020 Sex and Gender Information Value Date Recorded Sex Assigned at Male 04/03/2019 2:51 PM EDT Legal Sex Male 5:00 PM EDT Gender Identity Male 04/03/2019 2:51 PM EDT Sexual Orientation Straight 04/03/2019 2 :51 PM EDT Last Filed Vital Signs Vital Sign Reading Time Taken Comments Blood Pressure 109/64 08/05/2020 3:23 PM EST Pulse 65 08/05/2020 3:23 PM EST Temperature 36.2 ??C (97.1 ??F) 08/05/2020 3:23 PM ES T Respiratory Rate - - Oxygen Saturation 100% 07/04/2017 11:31 AM EST Inhaled Oxygen Concentration - - Weight 83.1 kg (183 lb 3.2 oz) 08/05/2020 3:23 P M EST Height 185.4 cm (6' 1 ) 08/05/2020 3:23 PM EST Body Mass Index 24.17 08/05/2020 3:23 PM EST Plan of Treatment Health Maintenance Due Date Last Done Comments DTaP,Tdap,and Td Vaccines (7 - Td or Tdap) 05/09/2022 05/09/2012, 05/02/2005, 09/02/2002, Additional history exists Influenza Vaccines (#1) 2024 05/19/20 20, 04/03/2019, 03/18/2018, Additional history exists COVID-19 Vaccine (2023-2 5 season) 2024 12/03/2020, 11/05/2020 Hepatitis B Vaccines Completed 2001, 2001, 2001 HIB Vaccines Completed 05/22/2002, 07/05, 2001, Additional history exists Pneumococcal Vaccine Completed 03/19/2003, 2001, 2001, Additional history exists IPV Vaccines Completed 05/02/2005, 07/05, 2001, Additional history exists MMR Vaccines Completed 05/02/2005, 01/27/2002 Varicella Vaccines Completed 04/09/2008, 01/27/2002 HPV Vaccines Completed 05/07/2013, 07/05, 05/09/2012 Hepatitis A Vaccines Completed 02/18/2016, 04/01/20 15 Meningococcal Vaccine Completed 05/01/2017, 012 Men B Vaccine Completed 10/03/2019, 04/03/2019
--- OUTSIDE RECORDS SUMMARY | 2024-09-18 08:43 | XMS_ITS | Encounter Summary ---
Author Organization [facility] Address [address] [place] [address] Phone Care Team Providers Care Salesperson Hosiery Name Role Phone Pb La MD Primary Care Provider [phone] Encounter Details Date Type Department Care Team (Late st Contact Info) Description 05/08/2013 Documentation [facility] [place] Family Medicine [address] [place] [address] Family Medicine, Physician [address] [place] [address] Social History Tobacco Use Types Packs/Day Years Used Date Smoking Tobacco: Never Assessed Sex and Gender Information Value Date Recorded Sex Assigned at Male 04/03/2019 2:51 PM EDT Legal Sex Male 5:00 PM EDT Gender Identity Male 04/03/2019 2:51 PM EDT Sexual Orientation Straight 04/03/2019 2: 51 PM EDT documented as of this encounter Plan of Treatment Not on file documented as of this encounter Visit Diagnoses Not on filedocumented in this encounter Care Teams Salesperson Hosiery Relationship Specialty Start Date End Date Pb La MD [address] [place] [address] PCP - General Pediatrics 10/03/19 11/22/22 documented as of this encounter
--- OUTSIDE RECORDS SUMMARY | 2024-09-18 08:43 | XMS_ITS | Encounter Summary ---
Author Organization [facility] Address [address] [place] [address] Phone Care Team Providers Care Grease Packer Name Role Phone Pb La MD Primary Care Provider [phone] Encounter Details Date Type Department Care Team (Late st Contact Info) Description 05/11/2014 [place] [facility] [place] [address] [place] [address] Family Medicine, Physician [address] [place] [address] Social History Tobacco Use Types Packs/Day Years [...] on filedocumented in this encounter Care Teams Grease Packer Relationship Specialty Start Date End Date Pb La MD [address] [place] [address] PCP - General Pediatrics 10/03/19 11/22/22 documented as of this encounter
--- OUTSIDE RECORDS SUMMARY | 2024-09-18 08:43 | XMS_ITS | Encounter Summary ---
Author Organization [facility] Address [address] [place] [address] Phone Care Team Providers Care Parts Salesperson Name Role Phone Pb La MD Primary Care Provider [phone] Encounter Details Date Type Department Care Team (Late st Contact Info) Description 05/10/2012 Documentation [facility] [place] Family Medicine [address] [place] [address] Family Medicine, Physician [address] [place] [address] Social History Tobacco Use Types Packs/Day Years [...] on filedocumented in this encounter Care Teams Parts Salesperson Relationship Specialty Start Date End Date Pb La MD [address] [place] [address] PCP - General Pediatrics 10/03/19 11/22/22 documented as of this encounter
--- OUTSIDE RECORDS SUMMARY | 2024-09-18 08:43 | XMS_ITS | Encounter Summary ---
Author Organization [facility] Address [address] [place] [address] Phone Care Team Providers Care Geological Scout Name Role Phone Pb La MD Primary Care Provider [phone] Encounter Details Date Type Department Care Team (Late st Contact Info) Description 05/04/[address] [facility] [place] [address] [place] [address] Family Medicine, Physician [address] [place] [address] Social History Tobacco Use Types Packs/Day Years [...] on filedocumented in this encounter Care Teams Geological Scout Relationship Specialty Start Date End Date Pb La MD [address] [place] [address] PCP - General Pediatrics 10/03/19 11/22/22 documented as of this encounter
--- OUTSIDE RECORDS SUMMARY | 2024-09-18 08:43 | XMS_ITS | Encounter Summary ---
Author Organization [facility] Address [address] [place] [address] Phone Care Team Providers Care Environmental Remediation Consultant Name Role Phone Pb La MD Primary Care Provider [phone] Encounter Details Date Type Department Care Team (Late st Contact Info) Description 07/18/2012 Documentation [facility] [place] [address] [place] [address] Family Medicine, Physician [address] [place] [address] Social History Tobacco Use Types Packs/Day Years [...] on filedocumented in this encounter Care Teams Environmental Remediation Consultant Relationship Specialty Start Date End Date Pb La MD [address] [place] [address] PCP - General Pediatrics 10/03/19 11/22/22 documented as of this encounter
--- OUTSIDE RECORDS SUMMARY | 2024-09-18 08:43 | XMS_ITS | Encounter Summary ---
Author Organization [facility] Address [address] [place] [address] Phone Care Team Providers Care Sliver Lapper Name Role Phone Pb La MD Primary Care Provider [phone] Encounter Details Date Type Department Care Team (Late st Contact Info) Description 04/02/2015 Documentation [facility] [place] [address] [place] [address] Family Medicine, Physician [address] [place] [address] Social History Tobacco Use Types Packs/Day Years [...] on filedocumented in this encounter Care Teams Sliver Lapper Relationship Specialty Start Date End Date Pb La MD [address] [place] [address] PCP - General Pediatrics 10/03/19 11/22/22 documented as of this encounter
--- OUTSIDE RECORDS SUMMARY | 2024-09-18 08:43 | XMS_ITS | Encounter Summary ---
Author Organization [facility] Address [address] [place] [address] Phone Care Team Providers Care Bus Operator Name Role Phone Pb La MD Primary Care Provider [phone] Encounter Details Date Type Department Care Team (Late st Contact Info) Description 03/11/2013 Documentation [facility] [place] [facility] [place] [address] [place] [address] Family Medicine, Physician [address] [place] [address] Social History Tobacco Use Types Packs/Day Years [...] on filedocumented in this encounter Care Teams Bus Operator Relationship Specialty Start Date End Date Pb La MD [address] [place] [address] PCP - General Pediatrics 10/03/19 11/22/22 documented as of this encounter
--- OUTSIDE RECORDS SUMMARY | 2024-09-18 08:43 | XMS_ITS | Encounter Summary ---
Author Organization [facility] Address [address] [place] [address] Phone Care Team Providers Care Parquet Floor Layer'S Helper Name Role Phone Pb La MD Primary Care Provider Encounter Details Date Type Department Care Team (Late st Contact Info) Description 05/10/2012 [place]ation [facility] [place] [address] [place] [address] Family Medicine, Physician [address] [place] [address] Social History Tobacco Use Types Packs/Day Years [...] on filedocumented in this encounter Care Teams Parquet Floor Layer'S Helper Relationship Specialty Start Date End Date Pb La MD [address] [place] [address] PCP - General Pediatrics 10/03/19 11/22/22 documented as of this encounter
--- OUTSIDE RECORDS SUMMARY | 2024-09-18 08:43 | XMS_ITS | Encounter Summary ---
Author Organization [facility] Address [address] [place] [address] Phone Care Team Providers Care Crm Technical Lead Name Role Phone Pb La MD Primary Care Provider [phone] Encounter Details Date Type Department Care Team ([facility] st Contact Info) Description 01/18/2017 Conversion Encounter [facility] [address] [place] [address] Social History Tobacco Use Types Packs/Day Years Used Date Smoking Tobacco: Never Comments:Never smoker Sex and Gender Information Value Date Recorded Sex Assigned at Male 04/03/2019 2:51 PM EDT Legal Sex Male 5:00 PM EDT Gender Identity Male 04/03/2019 2:51 PM EDT Sexual Orientation Straight 04/03/2019 2: 51 PM EDT documented as of this encounter Plan of Treatment Not on file documented as of this encounter Visit Diagnoses Not on filedocumented in this encounter Care Teams Crm Technical Lead Relationship Specialty Start Date End Date Pb La MD [address] [place] [address] PCP - General Pediatrics 10/03/19 11/22/22 documented as of this encounter
--- OUTSIDE RECORDS SUMMARY | 2024-09-18 08:43 | XMS_ITS | Encounter Summary ---
Author Organization [facility] Address [address] [place] [address] Phone Care Team Providers Care Certified Drug Counselor Name Role Phone bP La MD Primary Care Provider [phone] Encounter Details Date Type Department Care Team (Late st Contact Info) Description 05/11/2014 Documentation [facility] [place] [address] [place] [address] Family Medicine, Physician [address] [place] [address] Social History Tobacco Use Types Packs/Day Years [...] on filedocumented in this encounter Care Teams Certified Drug Counselor Relationship Specialty Start Date End Date Pb La MD [address] [place] [address] PCP - General Pediatrics 10/03/19 11/22/22 documented as of this encounter
--- OUTSIDE RECORDS SUMMARY | 2024-09-18 08:43 | XMS_ITS | Encounter Summary ---
Author Organization [facility] Address [address] [place] [address] Phone Care Team Providers Care Night Clerk Name Role Phone Pb La MD Primary Care Provider [phone] Encounter Details Date Type Department Care Team (Late st Contact Info) Description 05/19/2013 Documentation [facility] [place] Family Medicine [address] [place] [address] Family Medicine, Physician [address] [place] [address] Social History Tobacco Use Types Packs/Day Years [...] on filedocumented in this encounter Care Teams Night Clerk Relationship Specialty Start Date End Date Pb La MD [address] [place] [address] PCP - General Pediatrics 10/03/19 11/22/22 documented as of this encounter
--- OUTSIDE RECORDS SUMMARY | 2024-09-18 08:43 | XMS_ITS | Encounter Summary ---
Author Organization [facility] Address [address] [place] [address] Phone Care Team Providers Care Maintenance Supervisor Mechanical Name Role Phone Pb La MD Primary Care Provider [phone] Encounter Details Date Type Department Care Team (Late st Contact Info) Description 07/18/2012 [place]ation [facility] [address] [place] [address] Family Medicine, Physician [address] [place] [address] Social History Tobacco Use Types Packs/Day Years [...] on filedocumented in this encounter Care Teams Maintenance Supervisor Mechanical Relationship Specialty Start Date End Date Pb La MD [address] [place] [address] PCP - General Pediatrics 10/03/19 11/22/22 documented as of this encounter
--- OUTSIDE RECORDS SUMMARY | 2024-09-18 08:43 | XMS_ITS | Encounter Summary ---
Author Organization [facility] Address [address] [place] [address] Phone Care Team Providers Care Boat Motor Mechanic Name Role Phone Pb La MD Primary Care Provider [phone] Encounter Details Date Type Department Care Team (Late st Contact Info) Description 04/25/2011 [place]ation [facility] [place] [address] [place] [address] Family Medicine, Physician [address] [place] [address] Social History Tobacco Use Types Packs/Day Years [...] on filedocumented in this encounter Care Teams Boat Motor Mechanic Relationship Specialty Start Date End Date Pb La MD [address] [place] [address] PCP - General Pediatrics 10/03/19 11/22/22 documented as of this encounter
--- OUTSIDE RECORDS SUMMARY | 2024-09-18 08:43 | XMS_ITS | Encounter Summary ---
Author Organization [facility] Address [address] [place] [address] Phone Care Team Providers Care Construction Field Engineer Name Role Phone Pb La MD Primary Care Provider [phone] Encounter Details Date Type Department Care Team (Late st Contact Info) Description 05/10/2012 Documentation [facility] [place] [address] [place] [address] Family Medicine, Physician [address] [place] [address] Social History Tobacco Use Types Packs/Day Years [...] on filedocumented in this encounter Care Teams Construction Field Engineer Relationship Specialty Start Date End Date Pb La MD [address] [place] [address] PCP - General Pediatrics 10/03/19 11/22/22 documented as of this encounter
--- OUTSIDE RECORDS SUMMARY | 2024-09-18 08:43 | XMS_ITS | Encounter Summary ---
Author Organization [facility] Address [address] [place] [address] Phone Care Team Providers Care Preparer Name Role Phone Pb La MD Primary Care Provider [phone] Encounter Details Date Type Department Care Team (Late st Contact Info) Description 05/08/2013 Documentation [facility] [place] Family Medicine [address] [place] [address] Family Medicine, Physician [address] [place] [address] Social History Tobacco Use Types Packs/Day Years [...] on filedocumented in this encounter Care Teams Preparer Relationship Specialty Start Date End Date Pb La MD [address] [place] [address] PCP - General Pediatrics 10/03/19 11/22/22 documented as of this encounter
--- OUTSIDE RECORDS SUMMARY | 2024-09-18 08:43 | XMS_ITS | Encounter Summary ---
Author Organization [facility] Address [address] [place] [address] Phone Care Team Providers Care Silk Blocker Name Role Phone Pb La MD Primary Care Provider [phone] Encounter Details Date Type Department Care Team (Late st Contact Info) Description 04/02/2015 Documentation [facility] [place] Family Medicine [address] [place] [address] Family Medicine, Physician [address] [place] [address] Social History Tobacco Use Types Packs/Day Years [...] on filedocumented in this encounter Care Teams Silk Blocker Relationship Specialty Start Date End Date Pb La MD [address] [place] [address] PCP - General Pediatrics 10/03/19 11/22/22 documented as of this encounter
--- OUTSIDE RECORDS SUMMARY | 2024-09-18 08:43 | XMS_ITS | Encounter Summary ---
Author Organization [facility] Address [address] [place] [address] Phone Care Team Providers Care Professor Of Literacy Name Role Phone Pb La MD Primary Care Provider [phone] Encounter Details Date Type Department Care Team (Late st Contact Info) Description 02/21/2016 Documentation [facility] [place] Family Medicine [address] [place] [address] Family Medicine, Physician [address] [place] [address] Social History Tobacco Use Types Packs/Day Years [...] on filedocumented in this encounter Care Teams Professor Of Literacy Relationship Specialty Start Date End Date Pb La MD [address] [place] [address] PCP - General Pediatrics 10/03/19 11/22/22 documented as of this encounter
--- OUTSIDE RECORDS SUMMARY | 2024-09-18 08:43 | XMS_ITS | Encounter Summary ---
Author Organization [facility] Address [address] [place] [address] Phone Care Team Providers Care Powder Compounder Name Role Phone Pb La MD Primary Care Provider [phone] Encounter Details Date Type Department Care Team (Late st Contact Info) Description 04/25/2011 Documentation [facility] [place] [address] [place] [address] Family Medicine, Physician [address] [place] [address] Social History Tobacco Use Types Packs/Day Years [...] on filedocumented in this encounter Care Teams Powder Compounder Relationship Specialty Start Date End Date Pb La MD [address] [place] [address] PCP - General Pediatrics 10/03/19 11/22/22 documented as of this encounter
--- OUTSIDE RECORDS SUMMARY | 2024-09-18 08:43 | XMS_ITS | Encounter Summary ---
Author Organization [facility] Address [address] [place] [address] Phone Care Team Providers Care Lead Teacher Name Role Phone Pb La MD Primary Care Provider [phone] Encounter Details Date Type Department Care Team (Late st Contact Info) Description 04/04/2016 [place]ation [facility] [place] [address] [place] [address] Family Medicine, Physician [address] [place] [address] Social History Tobacco Use Types Packs/Day Years [...] on filedocumented in this encounter Care Teams Lead Teacher Relationship Specialty Start Date End Date Pb La MD [address] [place] [address] PCP - General Pediatrics 10/03/19 11/22/22 documented as of this encounter
--- OUTSIDE RECORDS SUMMARY | 2024-09-18 08:43 | XMS_ITS | Encounter Summary ---
Author Organization [facility] Address [address] [place] [address] Phone Care Team Providers Care Linoleum Mechanic Name Role Phone Pb La MD Primary Care Provider Encounter Details Date Type Department Care Team (Late st Contact Info) Description 05/14/2013 Documentation [facility] [place] [address] [place] [address] Family Medicine, Physician [address] [place] [address] Social History Tobacco Use Types Packs/Day Years [...] on filedocumented in this encounter Care Teams Linoleum Mechanic Relationship Specialty Start Date End Date Pb La MD [address] [place] [address] PCP - General Pediatrics 10/03/19 11/22/22 documented as of this encounter
--- OUTSIDE RECORDS SUMMARY | 2024-09-18 08:43 | XMS_ITS | Encounter Summary ---
Author Organization [facility] Address [address] [place] [address] Phone Care Team Providers Care Transition Rn Name Role Phone Pb La MD Primary Care Provider [phone] Encounter Details Date Type Department Care Team (Late st Contact Info) Description 03/11/2013 Documentation [facility] [place] [address] [place] [address] Family Medicine, Physician [address] [place] [address] Social History Tobacco Use Types Packs/Day Years [...] on filedocumented in this encounter Care Teams Transition Rn Relationship Specialty Start Date End Date Pb La MD [address] [place] [address] PCP - General Pediatrics 10/03/19 11/22/22 documented as of this encounter
--- OUTSIDE RECORDS SUMMARY | 2024-09-18 08:43 | XMS_ITS | Clinical Summary ---
Author Organization [facility] [address] [place] [address] [place] [address] Phone Care Team Providers Care Planning Engineer Name Role Phone Alex Dunn MD Primary Care Provider Allergies Active Allergy Reactions Criticality Noted Date Comments Amoxicillin Hives 04/17/2024 Medications albuterol HFA (PROAIR HFA ; PROVENTIL HFA ; VENTOLIN HFA) 90 mcg/actuation inhaler Inhale 2 puffs by mouth. 1 Active multivitamin tablet Take 1 tablet by mouth 1 (one) time each day. 30 each 11 5 08/28/19 26 Active carbamide peroxide (DEBROX) 6.5 % otic solution Administer 5-10 drops into the right ear 2 (two) times a day. 15 mL 1 5 Active Active Problems Problem Noted Date Diagnosed Date COVID-19 virus infection 08/05/2020 Overview (04/17/2024): Dx'ed 03/23 Er visit 05/04/21, tested positive Allergic rhinitis 05/01/2017 Mild intermittent asthma, uncomplicated 04/03/20 16 Encounters Date Type Department Care Team Description 08/27/2024 4:00 PM EDT Office Visit Adult Medicine [address] [phone] Alex Dunn MD Annual physical exam (Primary Dx); Excessive ear wax, right from Last 3 Months Immunizations Name Administration Dates Next Due DTaP 5 pertussis antigens, D iptheria Tetanus acellular pertussis (Daptacel) 6wks to less than 7yo 05/02/2005,09/02/2002,2001,05/21,2001 H1N1 All Forms 04/12/2009 HPV, Quadrivalent 05/07/2013,07/17/2012,05/09/20 12 Hepatitis A Pediatric (Havri x; Vaqta) 12mo to less than 19yo 02/18/2016,04/01/2015 Hepatitis B Pediatric (Enger ix B; Recombivax HB) to less than 20 yo 2001,2001,2001 HiB PRP-T conjugate (Acthib, Hiberix) 6wks and older 05/22/2002,2001,2001,03/21 IPV Inactivated polio (Ipol) 6wks and older 05/02/2005,2001,2001,03/21 Influenza Quadrivalent, 0.5m l, preservative free (Fluarix; FluLaval; Fluzone) ages 6mo and older (Afluria) 3yo and older 05/19/2020,04/03/2019,03/18/2018,05/01,02/18/2016 Influenza Quadrivalent, with preservative (Fluzone; Afluria) 6mo and older 04/01/2015,05/09/2014 Influenza Split 03/10/2013, 2,04/24/2011,04/06 Influenza trivalent, with pr eservative (Fluzone; Afluria) 6mo and older 03/17/2009,04/09/2008,02/25/2007,05/24,03/22/2004 MMR, measles mumps and rubel la Live (Priorix; M-M-R II) 12mo and older 05/02/2005,01/27/2002 Meningococcal B, Recombinant (Trumenba) 16yo to less than 24yo 10/03/2019,04/03/2019 Meningococcal MCV4P 05/01/2017,05/09/2012 Pneumococcal Conjugate Vacci ne, 7 Valent 03/19/2003,2001,2001,03/21 Tdap Tetanus diptheria acell ular pertussis (Boostrix; Adacel) 7yo and older 05/09/2012 Varicella live (Varivax) 12m o and older 04/09/2008,01/27/2002 Social History Tobacco Use Types Packs/Day Years Used Date Smoking Tobacco: Never Assessed Sex and Gender Information Value Date Recorded Sex Assigned at Not on file Legal Sex Male 9:01 PM EST Gender Identity Not on file Sexual Orientation Not on file Last Filed Vital Signs Vital Sign Reading Time Taken Comments Blood Pressure 110/66 08/27/2024 4:04 PM EDT Pulse 77 08/27/2024 4:04 PM EDT Temperature 36.6 ??C (97.8 ??F) 08/27/2024 4:04 PM ED T Respiratory Rate 12 08/27/2024 4:04 PM EDT Oxygen Saturation - - Inhaled Oxygen Concentration - - Weight 97.5 kg (215 lb) 08/27/2024 4:04 PM EDT Height 185.4 cm (6' 1 ) 08/27/2024 4:04 PM EDT Body Mass Index 28.37 08/27/2024 4:04 PM EDT Plan of Treatment Upcoming Encounters Date Type Department Care Team (Late st Contact Info) Description 09/02/2025 8:00 AM EDT Office Visit Adult Medicine [facility] [address] [place] [address] Alex Dunn MD [address] [place] [address] Health Maintenance Due Date Last Done Comments Influenza Vaccine (Season Ended) 2025 05/19/2020, 04/03/2019, 03/18/2018, Additional history exists COVID-19 Vaccine ( season) 2025 12/03/2020, 11/05/2020 Postponed from 02/03/2024 (Patient Refused) DTaP,Tdap,and Td Vaccines (7 - Td or Tdap) 06/04/2025 05/09/2012, 05/02/2005, 09/02/2002, Additional history exists Postponed from 05/09/2022 (Patient Refused) HIV Screening 06/04/2025 Postponed from 06/29/2023 (Patient Refused) Hepatitis C Screening 06/04/2025 Postpo george from 06/29/2023 (Patient Refused) Pneumococcal Vaccine: Pediatrics (0 to 5 Years) and At-Risk Patients (6 to 64 Years) (1 of 1 - PPSV23) 06/04/2025 03/19/2003, 2001, 2001, Additional history exists Postponed from 2007 (Patient Refused) Depression Screening 08/27/2025 08/27/2024 Social Influencers of Health Screening 08/27/2025 08/27/2024 Hepatitis B Vaccines Completed 2001, 2001, 2001 HIB Vaccines Completed 05/22/2002, 07/05, 2001, Additional history exists IPV Vaccines Completed 05/02/2005, 07/05, 2001, Additional history exists MMR Vaccines Completed 05/02/2005, 01/27/2002 Varicella Vaccines Completed 04/09/2008, 01/27/2002 HPV Vaccines Completed 05/07/2013, 07/05, 05/09/2012 Hepatitis A Vaccines Completed 02/18/2016, 04/01/20 15 Meningococcal ACWY Vaccine Completed 05/01/2017, Meningococcal B Vaccine Completed 10/03/2019, 04/03 RSV Immunization Patients Under 20 months Aged Out No longer eligible based on patient's age to complete this topic Insurance [facility] [employer] [facility] Care Teams Planning Engineer Relationship Specialty Start Date End Date Alex Dunn MD [address] [place] [address] PCP - General 03/17/22
--- OUTSIDE RECORDS SUMMARY | 2024-09-18 08:43 | XMS_ITS | Encounter Summary ---
Author Organization [facility] Address [address] [place] [address] Phone Care Team Providers Care Criminal Investigator Name Role Phone Pb La MD Primary Care Provider [phone] Encounter Details Date Type Department Care Team (Late st Contact Info) Description 04/04/2016 Documentation [facility] [place] Medicine [address] [place] [address] Family Medicine, Physician [address] [place] [address] Social History Tobacco Use Types Packs/Day Years [...] on filedocumented in this encounter Care Teams Criminal Investigator Relationship Specialty Start Date End Date Pb La MD [address] [place] [address] PCP - General Pediatrics 10/03/19 11/22/22 documented as of this encounter
--- OUTSIDE RECORDS SUMMARY | 2024-09-18 08:43 | XMS_ITS | Encounter Summary ---
Author Organization [facility] Address [address] [place] [address] Phone Care Team Providers Care Pipe Insulator Helper Name Role Phone Pb La MD Primary Care Provider [phone] Encounter Details Date Type Department Care Team (Late st Contact Info) Description 04/02/2015 Documentation [facility] [place] [address] [place] [address] Family Medicine, Physician [address] [place] [address] Social History Tobacco Use Types Packs/Day Years [...] on filedocumented in this encounter Care Teams Pipe Insulator Helper Relationship Specialty Start Date End Date Pb La MD [address] [place] [address] PCP - General Pediatrics 10/03/19 11/22/22 documented as of this encounter
== END 2024-09-18 08:24 | disposition home or self-care (01) ==
LOC: HO.HOSX 08:23
PROVIDERS: Visit Provider Orthopaedic Surgery
DX: Z98.890 Other specified postprocedural states (principal); S83.281A Other tear of lateral meniscus, current injury, right knee, initial encounter
CPT/HCPCS: 73560; 99212

== ENCOUNTER 2024-09-18 10:17 | Outpatient (AMB) | payer OTHER, SELFPAY ==
[2024-09-18 10:18] VITALS: BMI 25.5
--- NOTE | 2024-09-18 10:18 | MHC.OFFVIS ---
Vital Signs 09/18/24 10:18 Height 6 ft 1 in Weight 193 lb BMI 25.5 Intake Visit Reasons: PO RT Knee ACL 03/26/24 NE Intake Note: Kyle is a 24 year old male who presents today for a follow up of his right knee about 6 months s/p Right Knee ACL Reconstruction 03/26/24. Patient reports that he is doing well with no concerns Allergies amoxicillin [AMOXICILLIN] Allergy (Unknown, Verified 09/18/24 10:18) HIVES HPI HPI PO RT Knee ACL 03/26/24 NE: Details: 24-year-old now 6 months status post ACL reconstruction with root repair right knee. He is doing well. He feels well. He still has about a 3 degree loss of terminal extension however. PFSH Medical History Asthma Surgical History History of nasal surgery Social History Alcohol intake: unknown Patient Tobacco Use Status: Never used Tobacco Current occupational status: employed Current occupation: youth counselor Physical Exam Vital Signs: BMI result Body Mass Index 25.5 Extrem Other: No effusion 3-135 degrees of motion Stable Alf's Results Reviewed Results Reviewed: I personally reviewed relevant radiographs. ACL button in appropriate position. No abnormal findings on radiographs status post ACL reconstruction. Assessment & Plan Assessment & Plan (1) Lateral meniscal tear: Code(s): S83.289A - Other tear of lateral meniscus, current injury, unspecified knee, initial encounter Category: Medical Plan: Kyle overall is doing well. I showed him continue hamstring stretching as he is a bit tight in extension. He needs to aggressively continue to work on strengthening of the ipsilateral I I will see him back in 3 months. No cutting or competitive sporting activities. (2) S/P ACL reconstruction: Code(s): Z98.890 - Other specified postprocedural states Category: Surgical Plan: Orders: Orders XR knee RT 2V Today Z98.890 - Other specified postprocedural states Coding Level of Care Code Est Pt Level 3 (23275) Diagnoses Lateral meniscal tear S83.289A S/P ACL reconstruction Z98.890
--- OUTSIDE RECORDS SUMMARY | 2024-09-18 12:11 | XMS_ITS | Encounter Summary ---
Author Organization [facility] Address [address] [place] [address] Phone Care Team Providers Care Field Health Officer Name Role Phone Pb La MD Primary Care Provider [phone] Encounter Details Date Type Department Care Team (Late st Contact Info) Description 03/11/2013 Documentation [facility] [place] Family Medicine [address] [place] [address] Family Medicine, Physician [address] [place] [address] Social History Tobacco Use Types Packs/Day Years [...] on filedocumented in this encounter Care Teams Field Health Officer Relationship Specialty Start Date End Date Pb La MD [address] [place] [address] PCP - General Pediatrics 10/03/19 11/22/22 documented as of this encounter
--- OUTSIDE RECORDS SUMMARY | 2024-09-18 12:11 | XMS_ITS | Encounter Summary ---
Author Organization [facility] Address [address] [place] [address] Phone Care Team Providers Care Camouflage Specialist Name Role Phone Pb La MD Primary Care Provider [phone] Encounter Details Date Type Department Care Team (Late st Contact Info) Description 05/08/2013 Documentation [facility] [place] Family Medicine [address] [place] [address] Family Medicine, Physician [address] [place] [address] Social History Tobacco Use Types Packs/Day Years [...] on filedocumented in this encounter Care Teams Camouflage Specialist Relationship Specialty Start Date End Date Pb La MD [address] [place] [address] PCP - General Pediatrics 10/03/19 11/22/22 documented as of this encounter
--- OUTSIDE RECORDS SUMMARY | 2024-09-18 12:11 | XMS_ITS | Encounter Summary ---
Author Organization [facility] Address [address] [place] [address] Phone Care Team Providers Care Ripper Operator Name Role Phone Pb La MD Primary Care Provider [phone] Encounter Details Date Type Department Care Team (Late st Contact Info) Description 04/02/2015 Documentation [facility] [place] [address] [place] [address] Family Medicine, Physician [address] [place] [address] Social History Tobacco Use Types Packs/Day Years [...] on filedocumented in this encounter Care Teams Ripper Operator Relationship Specialty Start Date End Date Pb La MD [address] [place] [address] PCP - General Pediatrics 10/03/19 11/22/22 documented as of this encounter
--- OUTSIDE RECORDS SUMMARY | 2024-09-18 12:11 | XMS_ITS | Encounter Summary ---
Author Organization [facility] Address [address] [place] [address] Phone Care Team Providers Care Pastry Cook Helper Name Role Phone Pb La MD Primary Care Provider [phone] Encounter Details Date Type Department Care Team (Late st Contact Info) Description 04/25/2011 [place] [facility] [place] [address] [place] [address] Family Medicine, Physician [address] [place] [address] Social History Tobacco Use Types Packs/Day Years [...] on filedocumented in this encounter Care Teams Pastry Cook Helper Relationship Specialty Start Date End Date Pb La MD [address] [place] [address] PCP - General Pediatrics 10/03/19 11/22/22 documented as of this encounter
--- OUTSIDE RECORDS SUMMARY | 2024-09-18 12:11 | XMS_ITS | Clinical Summary ---
Author Organization [facility] Address [address] [place] [address] Phone Care Team Providers Care News Librarian Name Role Phone Unavailable Primary Care Provider [...] Diabetes mellitus, No family history of *Sudden /[place] under 55 Sister Luis Alive Sister: Alive [...]
--- OUTSIDE RECORDS SUMMARY | 2024-09-18 12:11 | XMS_ITS | Encounter Summary ---
Author Organization [facility] Address [address] [place] [address] Phone Care Team Providers Care Claims Coordinator Name Role Phone Pb La MD Primary Care Provider [phone] Encounter Details Date Type Department Care Team (Late st Contact Info) Description 02/21/2016 Documentation [facility] [place] Family Medicine [address] [place] [address] Family Medicine, Physician [address] [place] [address] Social History Tobacco Use Types Packs/Day Years [...] on filedocumented in this encounter Care Teams Claims Coordinator Relationship Specialty Start Date End Date Pb La MD [address] [place] [address] PCP - General Pediatrics 10/03/19 11/22/22 documented as of this encounter
--- OUTSIDE RECORDS SUMMARY | 2024-09-18 12:11 | XMS_ITS | Encounter Summary ---
Author Organization [facility] Address [address] [place] [address] Phone Care Team Providers Care Field Reporter Name Role Phone Pb La MD Primary Care Provider [phone] Encounter Details Date Type Department Care Team (Late st Contact Info) Description 05/04/2015 Documentation [facility] [place] Family Medicine [address] [place] [address] Family Medicine, Physician [address] [place] [address] Social History Tobacco Use Types Packs/Day Years [...] filedocumented in this encounter Care Teams Field Reporter Relationship Specialty Start Date End Date Pb La MD [address] [place] [address] PCP - General Pediatrics 10/03/19 11/22/22 documented as of this encounter
--- OUTSIDE RECORDS SUMMARY | 2024-09-18 12:11 | XMS_ITS | Encounter Summary ---
Author Organization [facility] Address [address] [place] [address] Phone Care Team Providers Care Patient Financial Services Manager Name Role Phone Pb La MD Primary Care Provider [phone] Encounter Details Date Type Department Care Team (Late st Contact Info) Description 05/08/2013 Documentation [facility] [place] Family Medicine [address] [place] [address] Family Medicine, Physician [address] [place] [address] Social History Tobacco Use Types Packs/Day Years [...] on filedocumented in this encounter Care Teams Patient Financial Services Manager Relationship Specialty Start Date End Date Pb La MD [address] [place] [address] PCP - General Pediatrics 10/03/19 11/22/22 documented as of this encounter
--- OUTSIDE RECORDS SUMMARY | 2024-09-18 12:11 | XMS_ITS | Encounter Summary ---
Author Organization [facility] Address [address] [place] [address] Phone Care Team Providers Care Director College Name Role Phone Pb La MD Primary Care Provider [phone] Encounter Details Date Type Department Care Team (Late st Contact Info) Description 05/14/2013 Documentation [facility] [place] Family Medicine [address] [place] [address] Family Medicine, Physician [address] [place] [address] Social History Tobacco Use Types Packs/Day Years [...] on filedocumented in this encounter Care Teams Director College Relationship Specialty Start Date End Date Pb La MD [address] [place] [address] PCP - General Pediatrics 10/03/19 11/22/22 documented as of this encounter
--- OUTSIDE RECORDS SUMMARY | 2024-09-18 12:11 | XMS_ITS | Encounter Summary ---
Author Organization [facility] Address [address] [place] [address] Phone Care Team Providers Care Exercise Equipment Specialist Name Role Phone Pb La MD Primary Care Provider [phone] Encounter Details Date Type Department Care Team (Late st Contact Info) Description 04/02/2015 Documentation [facility] [place] [address] [place] [address] Family Medicine, Physician [address] [place] [address] Social History Tobacco Use Types Packs/Day Years [...] on filedocumented in this encounter Care Teams Exercise Equipment Specialist Relationship Specialty Start Date End Date Pb La MD [address] [place] [address] PCP - General Pediatrics 10/03/19 11/22/22 documented as of this encounter
--- OUTSIDE RECORDS SUMMARY | 2024-09-18 12:11 | XMS_ITS | Encounter Summary ---
Author Organization [facility] Address [address] [place] [address] Phone Care Team Providers Care Bleacher Lard Name Role Phone Pb La MD Primary Care Provider [phone] Encounter Details Date Type Department Care Team (Late st Contact Info) Description 04/02/2015 [place]ation [facility] [place] [address] [place] [address] Family Medicine, Physician [address] [place] [address] Social History Tobacco Use Types Packs/Day Years [...] on filedocumented in this encounter Care Teams Bleacher Lard Relationship Specialty Start Date End Date Pb La MD [address] [place] [address] PCP - General Pediatrics 10/03/19 11/22/22 documented as of this encounter
--- OUTSIDE RECORDS SUMMARY | 2024-09-18 12:11 | XMS_ITS | Encounter Summary ---
Author Organization [facility] Address [address] [place] [address] Phone Care Team Providers Care Research Neuropsychologist Name Role Phone Pb La MD Primary Care Provider [phone] Encounter Details Date Type Department Care Team (Late st Contact Info) Description 03/11/2013 Documentation [facility] [place] Family [place] [address] [place] [address] Family Medicine, Physician [address] [place] [address] Social History Tobacco Use Types Packs/Day Years [...] on filedocumented in this encounter Care Teams Research Neuropsychologist Relationship Specialty Start Date End Date Pb La MD [address] [place] [address] PCP - General Pediatrics 10/03/19 11/22/22 documented as of this encounter
--- OUTSIDE RECORDS SUMMARY | 2024-09-18 12:11 | XMS_ITS | Encounter Summary ---
Author Organization [facility] Address [address] [place] [address] Phone Care Team Providers Care Digital Recruiter Name Role Phone Pb La MD Primary Care Provider [phone] Encounter Details Date Type Department Care Team (Late st Contact Info) Description 04/04/2016 Documentation [facility] [place] Family Medicine [address] [place] [address] Family Medicine, Physician [address] [place] [address] Social History Tobacco Use Types Packs/Day Years [...] on filedocumented in this encounter Care Teams Digital Recruiter Relationship Specialty Start Date End Date Pb La MD [address] [place] [address] PCP - General Pediatrics 10/03/19 11/22/22 documented as of this encounter
--- OUTSIDE RECORDS SUMMARY | 2024-09-18 12:11 | XMS_ITS | Encounter Summary ---
Author Organization [facility] Address [address] [place] [address] Phone Care Team Providers Care Glue Bone Drier Name Role Phone Pb La MD Primary Care Provider [phone] Encounter Details Date Type Department Care Team (Late st Contact Info) Description 04/04/2016 Documentation [facility] [place] Medicine [address] [place] [address] Family Medicine, Physician [address] [place] [address] Social History Tobacco Use Types Packs/Day Years [...] on filedocumented in this encounter Care Teams Glue Bone Drier Relationship Specialty Start Date End Date Pb La MD [address] [place] [address] PCP - General Pediatrics 10/03/19 11/22/22 documented as of this encounter
--- OUTSIDE RECORDS SUMMARY | 2024-09-18 12:11 | XMS_ITS | Encounter Summary ---
Author Organization [facility] Address [address] [place] [address] Phone Care Team Providers Care Petroleum Refining Firer Name Role Phone Pb La MD Primary Care Provider [phone] Encounter Details Date Type Department Care Team (Late st Contact Info) Description 04/25/2011 Documentation [facility] [place] [address] [place] [address] Family Medicine, Physician [address] [place] [address] Social History Tobacco Use Types Packs/Day Years [...] on filedocumented in this encounter Care Teams Petroleum Refining Firer Relationship Specialty Start Date End Date Pb La MD [address] [place] [address] PCP - General Pediatrics 10/03/19 11/22/22 documented as of this encounter
--- OUTSIDE RECORDS SUMMARY | 2024-09-18 12:11 | XMS_ITS | Encounter Summary ---
Author Organization [facility] Address [address] [place] [address] Phone Care Team Providers Care Mailroom Manager Name Role Phone Pb La MD Primary Care Provider [phone] Encounter Details Date Type Department Care Team (Late st Contact Info) Description 05/11/2014 Documentation [facility] [place] [address] [place] [address] Family Medicine, Physician [address] [place] [address] Social History Tobacco Use Types Packs/Day Years [...] on filedocumented in this encounter Care Teams Mailroom Manager Relationship Specialty Start Date End Date Pb La MD [address] [place] [address] PCP - General Pediatrics 10/03/19 11/22/22 documented as of this encounter
--- OUTSIDE RECORDS SUMMARY | 2024-09-18 12:11 | XMS_ITS | Encounter Summary ---
Author Organization [facility] Address [address] [place] [address] Phone Care Team Providers Care Retail Team Leader Name Role Phone Pb La MD Primary Care Provider [phone] Encounter Details Date Type Department Care Team (Late st Contact Info) Description 05/19/2013 Documentation [facility] [place] Family Medicine [address] [place] [address] Family Medicine, Physician [address] [place] [address] Social History Tobacco Use Types Packs/Day Years [...] on filedocumented in this encounter Care Teams Retail Team Leader Relationship Specialty Start Date End Date Pb La MD [address] [place] [address] PCP - General Pediatrics 10/03/19 11/22/22 documented as of this encounter
--- OUTSIDE RECORDS SUMMARY | 2024-09-18 12:11 | XMS_ITS | Encounter Summary ---
Author Organization [facility] Address [address] [place] [address] Phone Care Team Providers Care Technology Applications Consultant Name Role Phone Pb La MD Primary Care Provider [phone] Encounter Details Date Type Department Care Team (Late st Contact Info) Description 05/11/2014 Documentation [facility] [place] [address] [place] [address] Family Medicine, Physician [address] [place] [address] Social History Tobacco Use Types Packs/Day Years [...] on filedocumented in this encounter Care Teams Technology Applications Consultant Relationship Specialty Start Date End Date Pb La MD [address] [place] [address] PCP - General Pediatrics 10/03/19 11/22/22 documented as of this encounter
--- OUTSIDE RECORDS SUMMARY | 2024-09-18 12:12 | XMS_ITS | Encounter Summary ---
Author Organization [facility] Address [address] [place] [address] Phone Care Team Providers Care District Plant Superintendent Name Role Phone Pb La MD Primary Care Provider [phone] Encounter Details Date Type Department Care Team (Late st Contact Info) Description 05/10/2012 Documentation [facility] [place] [address] [place] [address] Family Medicine, Physician [address] [place] [address] Social History Tobacco Use Types Packs/Day Years [...] on filedocumented in this encounter Care Teams District Plant Superintendent Relationship Specialty Start Date End Date Pb La MD [address] [place] [address] PCP - General Pediatrics 10/03/19 11/22/22 documented as of this encounter
--- OUTSIDE RECORDS SUMMARY | 2024-09-18 12:12 | XMS_ITS | Encounter Summary ---
Author Organization [facility] Address [address] [place] [address] Phone Care Team Providers Care Director Of Counseling Name Role Phone Pb La MD Primary Care Provider [phone] Encounter Details Date Type Department Care Team (Late st Contact Info) Description 07/18/2012 Documentation [facility] [place] [address] [place] [address] Family Medicine, Physician [address] [place] [address] Social History Tobacco Use Types Packs/Day Years [...] filedocumented in this encounter Care Teams Director Of Counseling Relationship Specialty Start Date End Date Pb La MD [address] [place] [address] PCP - General Pediatrics 10/03/19 11/22/22 documented as of this encounter
--- OUTSIDE RECORDS SUMMARY | 2024-09-18 12:12 | XMS_ITS | Encounter Summary ---
Author Organization [facility] Address [address] [place] [address] Phone Care Team Providers Care Chief Steward/Stewardess Name Role Phone Pb La MD Primary Care Provider [phone] Encounter Details Date Type Department Care Team (Late st Contact Info) Description 05/10/2012 Documentation [facility] [place] [address] [place] [address] Family Medicine, Physician [address] [place] [address] Social History Tobacco Use Types Packs/Day Years [...] on filedocumented in this encounter Care Teams Chief Steward/Stewardess Relationship Specialty Start Date End Date Pb La MD [address] [place] [address] PCP - General Pediatrics 10/03/19 11/22/22 documented as of this encounter
--- OUTSIDE RECORDS SUMMARY | 2024-09-18 12:12 | XMS_ITS | Clinical Summary ---
Author Organization [facility] [address] [place] [address] [place] [address] Phone Care Team Providers Care Road Crossing Guard Name Role Phone Alex Dunn MD Primary Care Provider [phone] Allergies Active Allergy Reactions Criticality Noted Date [...] 4:00 PM EDT Office Visit Adult Medicine [address] [phone] Alex Dunn MD Annual physical exam (Primary [...] 8:00 AM EDT Office Visit [place] [facility] [place] [address] [place] [address] Alex Dunn MD [address] [place] [address] Health Maintenance Due Date Last Done Comments [...] patient's age to complete this topic Insurance [facility] PUBLIC PLANS Care Teams Road Crossing Guard Relationship Specialty Start Date End Date Alex Dunn MD [address] [place] [address] PCP - General 03/17/22
--- OUTSIDE RECORDS SUMMARY | 2024-09-18 12:12 | XMS_ITS | Encounter Summary ---
Author Organization [facility] Address [address] [place] [address] Phone Care Team Providers Care Wallpaper Remover Steam Name Role Phone Pb La MD Primary Care Provider Encounter Details Date Type Department Care Team (Late st Contact Info) Description 07/18/2012 Documentation [facility] [place] [address] [place] [address] Family Medicine, Physician [address] [place] [address] Social History Tobacco Use Types Packs/Day Years [...] on filedocumented in this encounter Care Teams Wallpaper Remover Steam Relationship Specialty Start Date End Date Pb La MD [address] [place] [address] PCP - General Pediatrics 10/03/19 11/22/22 documented as of this encounter
--- OUTSIDE RECORDS SUMMARY | 2024-09-18 12:12 | XMS_ITS | Encounter Summary ---
Author Organization [facility] Address [address] [place] [address] Phone Care Team Providers Care Tube Bender Name Role Phone Pb La MD Primary Care Provider [phone] Encounter Details Date Type Department Care Team ([facility] st Contact Info) Description 01/18/2017 Conversion Encounter [facility] [address] [place] [address] Social History Tobacco Use Types Packs/Day Years [...] on filedocumented in this encounter Care Teams Tube Bender Relationship Specialty Start Date End Date Pb La MD [address] [place] [address] PCP - General Pediatrics 10/03/19 11/22/22 documented as of this encounter
--- OUTSIDE RECORDS SUMMARY | 2024-09-18 12:12 | XMS_ITS | Encounter Summary ---
Author Organization [facility] Address [address] [place] [address] Phone Care Team Providers Care Engineering Test Mechanic Name Role Phone bP La MD Primary Care Provider [phone] Encounter Details Date Type Department Care Team (Late st Contact Info) Description 05/10/2012 Documentation [facility] [place] Medicine [address] [place] [address] Family Medicine, Physician [address] [place] [address] Social History Tobacco Use Types Packs/Day Years [...] on filedocumented in this encounter Care Teams Engineering Test Mechanic Relationship Specialty Start Date End Date Pb La MD [address] [place] [address] PCP - General Pediatrics 10/03/19 11/22/22 documented as of this encounter
== END 2024-09-18 10:44 | disposition home or self-care (01) ==
LOC: HO.HOS 10:17
PROVIDERS: PCP Internal Medicine; Visit Provider Orthopaedic Surgery
DX: Z47.89 Encounter for other orthopedic aftercare (principal); S83.281D Other tear of lateral meniscus, current injury, right knee, subsequent encounter
CPT/HCPCS: 99213

== ENCOUNTER → 2024-09-18 10:19 | Outpatient (BNV) | payer OTHER, SELFPAY | PROVIDERS: Visit Provider Radiology Diagnostic Radiology | DX: Z98.890 Other specified postprocedural states (principal) | CPT/HCPCS: 73560 ==

== ENCOUNTER 2024-12-15 10:50 | Outpatient (AMB) | payer OTHER, SELFPAY ==
--- NOTE | 2024-12-15 10:53 | A.OFFVIS_ITS ---
Vital Signs 12/15/24 10:54 Height 6 ft 1 in Weight 193 lb BMI 25.5 Intake Visit Reasons: OV-RT Knee ACL 03/26/24 NE-3 month follow up Intake Note: Kyle is a 24 year old male who presents today for a follow up of his Right Knee about 8 months s/p Right Knee ACL Reconstruction 03/26/24. At his last visit it was discussed that his hamstring was tight and he needs to work on stretching and aggressive strengthening. Patient reports he is doing well, and has been completing his at home exercises, no concerns at this time. Allergies amoxicillin (AMOXICILLIN) Allergy (Unknown, Verified 12/15/24 10:54) HIVES HPI HPI OV-RT Knee ACL 03/26/24 NE-3 month follow up: Details: Kyle is a 24 year old male who presents today for a follow up of his Right Knee about 8 months s/p Right Knee ACL Reconstruction 03/26/24. At his last visit it was discussed that his hamstring was tight and he needs to work on stretching and aggressive strengthening. Patient reports he is doing well, and has been completing his at home exercises, no concerns at this time. [facility] Medical History Asthma Surgical History History of nasal surgery Social History Alcohol intake: unknown Patient Tobacco Use Status: Never used Tobacco Current occupational status: employed Current occupation: youth counselor Physical Exam Vital Signs: BMI result Body Mass Index 25.5 Extrem Other: Full range of motion right knee Stable to varus and valgus stress 1+ Alf's with firm endpoint Mild effusion Quad and calf atrophy right Assessment & Plan Assessment & Plan (1) S/P ACL reconstruction: Code(s): Z98.890 - Other specified postprocedural states Category: Surgical Plan: S/p ACL reconstruction doing well with some right quad and leg atrophy which makes me think he is not being as aggressive as should be with his rehab exercise. I strongly recommend he engage in stationary bike and leg press and knee extension and knee flexion resistance exercises. No dynamic cutting activities. May jog in line. Follow up 3 months. Coding Level of Care Code Est Pt Level 3 (85936) Diagnoses S/P ACL reconstruction Z98.890
[2024-12-15 10:54] VITALS: BMI 25.5
--- OUTSIDE RECORDS SUMMARY | 2024-12-15 11:47 | XMS_ITS | Clinical Summary ---
Author Organization [facility] [address] [place] [address] [place] [phone] Phone Care Team Providers Care Housekeeper Supervisor Name Role Phone Alex Dunn MD Primary [...] Mild intermittent asthma, uncomplicated 04/03/20 16 Immunizations Name Administration Dates Next Due DTaP [...] 77 08/27/2024 4:04 PM EDT Temperature 36.6 C (97.8 F) 08/27/2024 4:04 PM EDT Respiratory Rate 12 08/27/2024 4:04 PM EDT [...] 8:00 AM EDT Office Visit Adult Medicine [facility] [address] [place] [address] Alex Dunn MD [address] [place] [address] Health Maintenance Due Date Last Done Comments Influenza Vaccine (#1) 2025 , 04/03/2019, 03/18/2018, Additional history exists COVID-19 Vaccine [...] 5 Years) and At-Risk Patients (6 to 49 Years) (1 of 1 - PPSV23) 06/04/2025 [...] patient's age to complete this topic Insurance [facility] PUBLIC PLANS [place] [id number] Care Teams Housekeeper Supervisor Relationship Specialty Start Date End Date Alex Dunn MD [address] [place] [address] PCP - General 03/17/22
--- OUTSIDE RECORDS SUMMARY | 2024-12-15 11:47 | XMS_ITS | Encounter Summary ---
Author Organization [facility] Address [address] [place] [address] Phone Care Team Providers Care Computer Systems Technology Instructor Name Role Phone Pb La MD Primary Care Provider [phone] Encounter Details Date Type Department Care Team (Late st Contact Info) Description 05/19/2013 Documentation [facility] [place] Family Medicine [address] [place] [address] Family Medicine, Physician [address] [place] [address] Social History Tobacco Use Types Packs/Day Years [...] on filedocumented in this encounter Care Teams Computer Systems Technology Instructor Relationship Specialty Start Date End Date Pb La MD [address] [place] [address] PCP - General Pediatrics 10/03/19 11/22/22 documented as of this encounter
== END 2024-12-15 11:54 | disposition home or self-care (01) ==
LOC: HO.HOS 10:50
PROVIDERS: PCP Internal Medicine; Visit Provider Orthopaedic Surgery
DX: Z47.89 Encounter for other orthopedic aftercare (principal); S83.511D Sprain of anterior cruciate ligament of right knee, subsequent encounter
CPT/HCPCS: 99213

== ENCOUNTER → 2024-12-15 10:50 | Outpatient (BNVA) | payer OTHER, SELFPAY | PROVIDERS: PCP Internal Medicine; Visit Provider Orthopaedic Surgery | DX: Z98.890 Other specified postprocedural states (principal) | CPT/HCPCS: 99212 ==

== ENCOUNTER 2025-03-19 09:18 | Outpatient (AMB) | payer OTHER, SELFPAY ==
--- NOTE | 2025-03-19 09:23 | MHC.OFFVIS ---
Vital Signs 03/19/25 09:24 Height 6 ft 1 in Weight 193 lb BMI 25.5 Intake Visit Reasons: OV-RT Knee ACL 03/26/24 NE-3 month follow up Intake Note: Kyle is a 25 year old male who presents today for a follow up of his Right Knee about one year s/p Right Knee ACL Reconstruction 03/26/24. At his last visit we discussed that he has some right quad atrophy and needs to be more aggressive with strengthening. Patient reports that he is doing well with no concerns, he has finished PT Allergies amoxicillin (AMOXICILLIN) Allergy (Unknown, Verified 03/19/25 09:26) HIVES HPI HPI OV-RT Knee ACL 03/26/24 NE-3 month follow up: Details: Kyle is a 25 year old male who presents today for a follow up of his Right Knee about one year s/p Right Knee ACL Reconstruction 03/26/24. At his last visit we discussed that he has some right quad atrophy and needs to be more aggressive with strengthening. Patient reports that he is doing well with no concerns, he has finished PT [facility] Medical History Asthma Surgical History History of nasal surgery Social History Alcohol intake: unknown Patient Tobacco Use Status: Never used Tobacco Current occupational status: employed Current occupation: youth counselor Physical Exam Vital Signs: BMI result Body Mass Index 25.5 Extrem Other: 2-135 degrees of motion. Stable Alf's with firm endpoint No pain Mild quad atrophy right compared to the left. Assessment & Plan Assessment & Plan (1) S/P ACL reconstruction: Code(s): Z98.890 - Other specified postprocedural states Category: Surgical Plan: Status post ACL reconstruction with root repair. He has done well and is playing sports and back to normal activity. I did order him a ACL brace for basketball. He can return to see me at any time. Continue strengthening exercises. (2) H/O medial meniscus repair of right knee: Code(s): Z98.890 - Other specified postprocedural states Category: Surgical Plan: Coding Level of Care Code Est Pt Level 3 (89854) Diagnoses S/P ACL reconstruction Z98.890 H/O medial meniscus repair of right knee Z98.890
[2025-03-19 09:24] VITALS: BMI 25.5
--- OUTSIDE RECORDS SUMMARY | 2025-03-19 10:32 | XMS_ITS | Encounter Summary ---
Author Organization [facility] Address [address] [place] [address] Phone Care Team Providers Care Bookkeeper Receptionist Name Role Phone Pb La MD Primary Care Provider [phone] Encounter Details Date Type Department Care Team (Late st Contact Info) Description 04/25/2011 Documentation [facility] [place] Family Medicine [address] [place] [address] Family Medicine, Physician [address] [place] [address] Social History Tobacco Use Types Packs/Day Years [...] on filedocumented in this encounter Care Teams Bookkeeper Receptionist Relationship Specialty Start Date End Date Pb La MD [address] [place] [address] PCP - General Pediatrics 10/03/19 11/22/22 documented as of this encounter
--- OUTSIDE RECORDS SUMMARY | 2025-03-19 10:32 | XMS_ITS | Encounter Summary ---
Author Organization [facility] Address [address] [place] [address] Phone Care Team Providers Care Fireworks Display Specialist Name Role Phone bP La MD Primary Care Provider Encounter Details Date Type Department Care Team (Late st Contact Info) Description 05/11/2014 Documentation [facility] [place] [address] [place] [address] Family Medicine, Physician [address] [place] [address] Social History Tobacco Use Types Packs/Day Years [...] on filedocumented in this encounter Care Teams Fireworks Display Specialist Relationship Specialty Start Date End Date Pb La MD [address] [place] [address] PCP - General Pediatrics 10/03/19 11/22/22 documented as of this encounter
--- OUTSIDE RECORDS SUMMARY | 2025-03-19 10:32 | XMS_ITS | Encounter Summary ---
Author Organization [facility] Address [address] [place] [address] Phone Care Team Providers Care Linotype Machinist Name Role Phone Pb La MD Primary Care Provider [phone] Encounter Details Date Type Department Care Team (Late st Contact Info) Description 05/08/2013 Documentation [facility] [place] [address] [place] [address] Family Medicine, Physician [address] [place] [address] Social History Tobacco Use Types Packs/Day Years [...] on filedocumented in this encounter Care Teams Linotype Machinist Relationship Specialty Start Date End Date Pb La MD [address] [place] [address] PCP - General Pediatrics 10/03/19 11/22/22 documented as of this encounter
--- OUTSIDE RECORDS SUMMARY | 2025-03-19 10:32 | XMS_ITS | Encounter Summary ---
Author Organization [facility] Address [address] [place] [address] Phone Care Team Providers Care Prepress Proofer Name Role Phone Pb La MD Primary Care Provider [phone] Encounter Details Date Type Department Care Team (Late st Contact Info) Description 04/02/2015 Documentation [facility] [place] Family Medicine [address] [place] [address] Family Medicine, Physician [address] [place] [address] Social History Tobacco Use Types Packs/Day Years [...] on filedocumented in this encounter Care Teams Prepress Proofer Relationship Specialty Start Date End Date Pb La MD [address] [place] [address] PCP - General Pediatrics 10/03/19 11/22/22 documented as of this encounter
--- OUTSIDE RECORDS SUMMARY | 2025-03-19 10:32 | XMS_ITS | Encounter Summary ---
Author Organization [facility] Address [address] [place] [address] Phone Care Team Providers Care Superintendent Drivers Name Role Phone Pb La MD Primary Care Provider [phone] Encounter Details Date Type Department Care Team (Late st Contact Info) Description 03/11/2013 Documentation [facility] [place] Medicine [address] [place] [address] Family Medicine, Physician [address] [place] [address] Social History Tobacco Use Types Packs/Day Years [...] on filedocumented in this encounter Care Teams Superintendent Drivers Relationship Specialty Start Date End Date Pb La MD [address] [place] [address] PCP - General Pediatrics 10/03/19 11/22/22 documented as of this encounter
--- OUTSIDE RECORDS SUMMARY | 2025-03-19 10:32 | XMS_ITS | Encounter Summary ---
Author Organization [facility] Address [address] [place] [address] Phone Care Team Providers Care Health Therapist Name Role Phone Pb La MD Primary Care Provider [phone] Encounter Details Date Type Department Care Team (Late st Contact Info) Description 03/11/2013 Documentation [facility] [place] [address] [place] [address] Family Medicine, Physician [address] [place] [address] Social History Tobacco Use Types Packs/Day Years [...] on filedocumented in this encounter Care Teams Health Therapist Relationship Specialty Start Date End Date Pb La MD [address] [place] [address] PCP - General Pediatrics 10/03/19 11/22/22 documented as of this encounter
--- OUTSIDE RECORDS SUMMARY | 2025-03-19 10:32 | XMS_ITS | Encounter Summary ---
Author Organization [facility] Address [address] [place] [address] Phone Care Team Providers Care Medical Records Auditor Name Role Phone Pb La MD Primary Care Provider [phone] Encounter Details Date Type Department Care Team (Late st Contact Info) Description 05/19/2013 Documentation [facility] [place] [address] [place] [address] Family Medicine, Physician [address] [place] [address] Social History Tobacco Use Types Packs/Day Years [...] on filedocumented in this encounter Care Teams Medical Records Auditor Relationship Specialty Start Date End Date Pb La MD [address] [place] [address] PCP - General Pediatrics 10/03/19 11/22/22 documented as of this encounter
--- OUTSIDE RECORDS SUMMARY | 2025-03-19 10:32 | XMS_ITS | Encounter Summary ---
Author Organization [facility] Address [address] [place] [address] Phone Care Team Providers Care Water Mangle Tender Name Role Phone Pb La MD Primary Care Provider [phone] Encounter Details Date Type Department Care Team (Late st Contact Info) Description 04/02/[address] [facility] [place] Family Medicine [address] [place] [address] Family Medicine, Physician [address] [place] [address] Social History Tobacco Use Types Packs/Day Years [...] on filedocumented in this encounter Care Teams Water Mangle Tender Relationship Specialty Start Date End Date Pb La MD [address] [place] [address] PCP - General Pediatrics 10/03/19 11/22/22 documented as of this encounter
--- OUTSIDE RECORDS SUMMARY | 2025-03-19 10:32 | XMS_ITS | Encounter Summary ---
Author Organization [facility] Address [address] [place] [address] Phone Care Team Providers Care Lot Associate Name Role Phone Pb La MD Primary Care Provider [phone] Encounter Details Date Type Department Care Team (Late st Contact Info) Description 04/02/2015 Documentation [facility] [place] Family Medicine [address] [place] [address] Family Medicine, Physician [address] [place] [address] Social History Tobacco Use Types Packs/Day Years [...] on filedocumented in this encounter Care Teams Lot Associate Relationship Specialty Start Date End Date bP La MD [address] [place] [address] PCP - General Pediatrics 10/03/19 11/22/22 documented as of this encounter
--- OUTSIDE RECORDS SUMMARY | 2025-03-19 10:32 | XMS_ITS | Clinical Summary ---
Author Organization [facility] [address] [place] [address] [place] [phone] Phone Care Team Providers Care Pricing Director Name Role Phone Alex Dunn MD Primary [...] Immunization Administration Dates Next Due DTaP 5 pertussis [...] 8:00 AM EDT Office Visit Adult Medicine [facility] [address] [place] [address] Alex Dunn MD [address] [place] [address] Health Maintenance Due Date Last Done Comments Depression Screening 06/04/2024 COVID-19 Vaccine ( season) 2025 12/03/2020, 11/05/2020 Influenza Vaccine (#1) 2025 , 04/03/2019, 03/18/2018, Additional history exists DTaP,Tdap,and Td Vaccines (7 - Td or Tdap) 06/04/2025 05/09/2012, 05/02/2005, 09/02/2002, Additional history exists Postponed from 05/09/2022 (Patient Refused) HIV Screening 06/04/2025 Postponed from 06/29/2023 (Patient Refused) Hepatitis C Screening 06/04/2025 Postpo george from 06/29/2023 (Patient Refused) Pneumococcal Vaccine: Pediatrics (0 to 5 Years) and At-Risk Patients (6 to 49 Years) (1 of 1 - PPSV23, PCV20, or PCV21) 06/04/2025 03/19/2003, 2001, 2001, Additional history exists Postponed from 2007 (Patient Refused) Social Influencers of Health Screening 08/27/2025 08/27/2024 RSV Immunization Adult Patients (1 - 1-dose 75+ series) 01/14/2076 Hepatitis B Vaccines Completed 2001, 2001, 2001 [...] topic Insurance [facility] PUBLIC PLANS OLIVA SAWANT [id number] Care Teams Pricing Director Relationship Specialty Start Date End Date Alex Dunn MD [facility] [place] Perez [address] PCP - General 03/17/22
--- OUTSIDE RECORDS SUMMARY | 2025-03-19 10:32 | XMS_ITS | Encounter Summary ---
Author Organization [facility] Address [address] [place] [address] Phone Care Team Providers Care Store Team Member Name Role Phone Pb La MD Primary Care Provider Encounter Details Date Type Department Care Team (Late st Contact Info) Description 05/10/2012 Documentation [facility] [place] Family Medicine [address] [place] [address] Family Medicine, Physician [address] [place] [address] Social History Tobacco Use Types Packs/Day Years [...] on filedocumented in this encounter Care Teams Store Team Member Relationship Specialty Start Date End Date Pb La MD [address] [place] [address] PCP - General Pediatrics 10/03/19 11/22/22 documented as of this encounter
--- OUTSIDE RECORDS SUMMARY | 2025-03-19 10:32 | XMS_ITS | Encounter Summary ---
Author Organization [facility] Address [address] [place] [address] Phone Care Team Providers Care Financial Management Name Role Phone Pb La MD Primary Care Provider [phone] Encounter Details Date Type Department Care Team (Late st Contact Info) Description 05/11/2014 Documentation [facility] [place] Family Medicine [address] [place] [address] Family Medicine, Physician [address] [place] [address] Social History Tobacco Use Types Packs/Day Years [...] on filedocumented in this encounter Care Teams Financial Management Relationship Specialty Start Date End Date Pb La MD [address] [place] [address] PCP - General Pediatrics 10/03/19 11/22/22 documented as of this encounter
--- OUTSIDE RECORDS SUMMARY | 2025-03-19 10:32 | XMS_ITS | Encounter Summary ---
Author Organization [facility] Address [address] [place] [address] Phone Care Team Providers Care Circus Performer Name Role Phone Pb La MD Primary Care Provider [phone] Encounter Details Date Type Department Care Team (Late st Contact Info) Description 02/21/2016 Documentation [facility] [place] [address] [place] [address] Family Medicine, Physician [address] [place] [address] Social History Tobacco Use Types Packs/Day Years [...] on filedocumented in this encounter Care Teams Circus Performer Relationship Specialty Start Date End Date Pb La MD [address] [place] [address] PCP - General Pediatrics 10/03/19 11/22/22 documented as of this encounter
--- OUTSIDE RECORDS SUMMARY | 2025-03-19 10:32 | XMS_ITS | Encounter Summary ---
Author Organization [facility] Address [address] [place] [address] Phone Care Team Providers Care Solid Plasterer Name Role Phone Pb La MD Primary Care Provider [phone] Encounter Details Date Type Department Care Team (Late st Contact Info) Description 05/08/2013 Documentation [facility] [place] Family Medicine [address] [place] [address] Family Medicine, Physician [address] [place] [address] Social History Tobacco Use Types Packs/Day Years [...] on filedocumented in this encounter Care Teams Solid Plasterer Relationship Specialty Start Date End Date Pb La MD [address] [place] [address] PCP - General Pediatrics 10/03/19 11/22/22 documented as of this encounter
--- OUTSIDE RECORDS SUMMARY | 2025-03-19 10:32 | XMS_ITS | Encounter Summary ---
Author Organization [facility] Address [address] [place] [address] Phone Care Team Providers Care Employment Consultant Name Role Phone Pb La MD Primary Care Provider [phone] Encounter Details Date Type Department Care Team (Late st Contact Info) Description 04/04/2016 Documentation [facility] [place] [address] [place] [address] Family Medicine, Physician [address] [place] [address] Social History Tobacco Use Types Packs/Day Years [...] on filedocumented in this encounter Care Teams Employment Consultant Relationship Specialty Start Date End Date Pb La MD [address] [place] [address] PCP - General Pediatrics 10/03/19 11/22/22 documented as of this encounter
--- OUTSIDE RECORDS SUMMARY | 2025-03-19 10:32 | XMS_ITS | Encounter Summary ---
Author Organization [facility] Address [address] [place] [address] Phone Care Team Providers Care Medical Specialist Name Role Phone Pb La MD Primary Care Provider [phone] Encounter Details Date Type Department Care Team (Late st Contact Info) Description 04/25/2011 Documentation [facility] [place] Family Medicine [address] [place] [address] Family Medicine, Physician [address] [place] [address] Social History Tobacco Use Types Packs/Day Years [...] filedocumented in this encounter Care Teams Medical Specialist Relationship Specialty Start Date End Date Pb La MD [address] [place] [address] PCP - General Pediatrics 10/03/19 11/22/22 documented as of this encounter
--- OUTSIDE RECORDS SUMMARY | 2025-03-19 10:32 | XMS_ITS | Encounter Summary ---
Author Organization [facility] Address [address] [place] [address] Phone Care Team Providers Care Call Center Rn Name Role Phone Pb aL MD Primary Care Provider [phone] Encounter Details Date Type Department Care Team (Late st Contact Info) Description 04/04/[address] [facility] [place] Family Medicine [address] [place] [address] Family Medicine, Physician [address] [place] [address] Social History Tobacco Use Types Packs/Day Years [...] on filedocumented in this encounter Care Teams Call Center Rn Relationship Specialty Start Date End Date Pb La MD [address] [place] [address] PCP - General Pediatrics 10/03/19 11/22/22 documented as of this encounter
--- OUTSIDE RECORDS SUMMARY | 2025-03-19 10:32 | XMS_ITS | Encounter Summary ---
Author Organization [facility] Address [address] [place] [address] Phone Care Team Providers Care Form Presser Name Role Phone Pb La MD Primary Care Provider Encounter Details Date Type Department Care Team (Late st Contact Info) Description 05/10/2012 Documentation [facility] [place] Family Medicine [address] [place] [address] Family Medicine, Physician [address] [place] [address] Social History Tobacco Use Types Packs/Day Years [...] on filedocumented in this encounter Care Teams Form Presser Relationship Specialty Start Date End Date Pb La MD [address] [place] [address] PCP - General Pediatrics 10/03/19 11/22/22 documented as of this encounter
--- OUTSIDE RECORDS SUMMARY | 2025-03-19 10:32 | XMS_ITS | Encounter Summary ---
Author Organization [facility] Address [address] [place] [address] Phone Care Team Providers Care Double End Chucking Machine Operator Name Role Phone Pb La MD Primary Care Provider [phone] Encounter Details Date Type Department Care Team (Late st Contact Info) Description 05/04/2015 Documentation [facility] [place] [address] [place] [address] Family Medicine, Physician [address] [place] [address] Social History Tobacco Use Types Packs/Day Years [...] on filedocumented in this encounter Care Teams Double End Chucking Machine Operator Relationship Specialty Start Date End Date Pb La MD [address] [place] [address] PCP - General Pediatrics 10/03/19 11/22/22 documented as of this encounter
--- OUTSIDE RECORDS SUMMARY | 2025-03-19 10:32 | XMS_ITS | Encounter Summary ---
Author Organization [facility] Address [address] [place] [address] Phone Care Team Providers Care Agronomy Manager Name Role Phone Pb La MD Primary Care Provider [phone] Encounter Details Date Type Department Care Team (Late st Contact Info) Description 05/10/2012 Documentation [facility] Family Medicine [address] [place] [address] Family Medicine, Physician [address] [place] [address] Social History Tobacco Use Types Packs/Day Years [...] on filedocumented in this encounter Care Teams Agronomy Manager Relationship Specialty Start Date End Date Pb La MD [address] [place] [address] PCP - General Pediatrics 10/03/19 11/22/22 documented as of this encounter
--- OUTSIDE RECORDS SUMMARY | 2025-03-19 10:32 | XMS_ITS | Encounter Summary ---
Author Organization [facility] Address [address] [place] [address] Phone Care Team Providers Care Electrical Engineering Director Name Role Phone Pb La MD Primary Care Provider [phone] Encounter Details Date Type Department Care Team ([facility] st Contact Info) Description 01/18/2017 Conversion Encounter [facility] [address] [place] [address] Social History Tobacco Use Types Packs/Day Years [...] on filedocumented in this encounter Care Teams Electrical Engineering Director Relationship Specialty Start Date End Date Pb La MD [address] [place] [address] PCP - General Pediatrics 10/03/19 11/22/22 documented as of this encounter
--- OUTSIDE RECORDS SUMMARY | 2025-03-19 10:32 | XMS_ITS | Encounter Summary ---
Author Organization [facility] Address [address] [place] [address] Phone Care Team Providers Care Catalog Library Assistant Name Role Phone Pb La MD Primary Care Provider [phone] Encounter Details Date Type Department Care Team (Late st Contact Info) Description 05/14/2013 Documentation [facility] [place] Family Medicine [address] [place] [address] Family Medicine, Physician [address] [place] [address] Social History Tobacco Use Types Packs/Day Years [...] on filedocumented in this encounter Care Teams Catalog Library Assistant Relationship Specialty Start Date End Date Pb La MD [address] [place] [address] PCP - General Pediatrics 10/03/19 11/22/22 documented as of this encounter
--- OUTSIDE RECORDS SUMMARY | 2025-03-19 10:32 | XMS_ITS | Clinical Summary ---
Author Organization [facility] Address [address] [place] [address] Phone Care Team Providers Care Engineering Technical Writer Name Role Phone Unavailable Primary Care Provider [...] Diabetes mellitus, No family history of *Sudden /MS under 55 Sister Luis Alive Sister: Alive [...] Orientation Straight 04/03/2019 2: 51 PM EDT Last Filed Vital Signs Vital Sign Reading Time Taken Comments Blood Pressure 109/64 08/05/2020 3:23 PM EST Pulse 65 08/05/2020 3:23 PM EST Temperature 36.2 C (97.1 F) 08/05/2020 3:23 PM EST Respiratory Rate - - Oxygen Saturation 100% [...] 09/02/2002, Additional history exists Influenza Vaccines (#1) 2025 05/19/20 20, 04/03/2019, 03/18/2018, Additional history exists COVID-19 Vaccine (3 2024-2 6 season) 2025 12/03/2020, 11/05/2020 Hepatitis B Vaccines Completed 2001, [...]
--- OUTSIDE RECORDS SUMMARY | 2025-03-19 10:32 | XMS_ITS | Encounter Summary ---
Author Organization [facility] Address [address] [place] [address] Phone Care Team Providers Care Bag Filler Machine Operator Name Role Phone Pb La MD Primary Care Provider [phone] Encounter Details Date Type Department Care Team (Late st Contact Info) Description 07/18/2012 Documentation [facility] [place] Family Medicine [address] [place] [address] Family Medicine, Physician [address] [place] [address] Social History Tobacco Use Types Packs/Day Years [...] on filedocumented in this encounter Care Teams Bag Filler Machine Operator Relationship Specialty Start Date End Date Pb La MD [address] [place] [address] PCP - General Pediatrics 10/03/19 11/22/22 documented as of this encounter
--- OUTSIDE RECORDS SUMMARY | 2025-03-19 10:32 | XMS_ITS | Encounter Summary ---
Author Organization [facility] Address [address] [place] [address] Phone Care Team Providers Care Covered Button Maker Name Role Phone Pb La MD Primary Care Provider Encounter Details Date Type Department Care Team (Late st Contact Info) Description 07/18/2012 Documentation [facility] [place] [address] [place] [address] Family Medicine, Physician [address] [place] [address] Social History Tobacco Use Types Packs/Day Years [...] on filedocumented in this encounter Care Teams Covered Button Maker Relationship Specialty Start Date End Date Pb La MD [address] [place] [address] PCP - General Pediatrics 10/03/19 11/22/22 documented as of this encounter
== END 2025-03-19 09:49 | disposition home or self-care (01) ==
LOC: HO.HOS 09:19
PROVIDERS: PCP Internal Medicine; Visit Provider Orthopaedic Surgery
DX: Z47.89 Encounter for other orthopedic aftercare (principal); S83.511D Sprain of anterior cruciate ligament of right knee, subsequent encounter
CPT/HCPCS: 99213

== ENCOUNTER → 2025-03-19 09:18 | Outpatient (BNVA) | payer OTHER, SELFPAY | PROVIDERS: PCP Internal Medicine; Visit Provider Orthopaedic Surgery | DX: Z47.89 Encounter for other orthopedic aftercare (principal); Z98.890 Other specified postprocedural states | CPT/HCPCS: 99212 ==